=== PATIENT | male | born 1955 | race Caucasian/White ===

== ENCOUNTER 2016-09-10 19:01 | Inpatient (IN) | payer MEDICARE, BC, OTHER ==
[~2016-09-10] VITALS: Ht 182.9 cm; Wt 92.3 kg
[2016-09-10] VITALS (60 sets, daily range): BP systolic 124; BP diastolic 81; PULSE 100; TEMP 98.1; O2SAT 77–98
[~2016-09-10 19:01] MED LIST: ALBUTEROL SULFAT3 M3 IH; ASPIRIN 32325 MG/TAB PO; ATIVAN 0.50.5 MG/TAB PO; BACTRIM DS 8001 TAB PO; BUPROPION HCL75 MG PO; CATAPRES 0.1MG0.1 MG PO; CELEXA40 MG PO; COLACE 100100 MG/CAP PO; DESYREL 100MG100 MG PO; DULCOLAX10 MG RC; ENULOSE10 GM/151 PO; FEROSUL325 MG PO; FERRATE325 MG PO; FLOMAX 0.40.4 MG/CAP PO; GEODON 20 MG20 MG PO; INFED50 MG/ML IM; K-DUR 2020 MEQ PO; LEVAQUIN 5500 MG/TAB PO; LEXAPRO 10MG10 MG PO; LIORESAL I2000 MCG/1 IT; LOPID 600M600 MG/TAB PO; LORTAB 5/500 501 TAB PO; MIRALAX 17GM PK1 PKT PO; MIRALAX PA17 GM/Dose PO; MVI; NORCO 325 MG-7.1 TAB PO; NYAMYC100000 U/G TP; PREVACID 30MG30 M1 PO; PRINVIL PO; PROBIOTIC FORMU1 CAP PO; RISPERDAL 0.20.25 MG PO; SEE INSTRUCTIONS IT; SENOKOT8.6 MG PO; SLOW-MAG 6464 MG/TAB PO; THERAGRAN1 TA1 PO; TRAZODO50 MG PO; TYLENOL 325MG325 MG PO; TYLENOL SU650 MG/SUP RC; VANCOCIN HCL1 GM IV; VITAMIN C500 MG PO; ZOCOR 20MG20 MG PO
[2016-09-10 19:48] LABS: BASO # 0.1 (0.0-0.2); BASO % 0.4 % (0.0-2.0); EOS # 0.2 (0.0-0.7); EOS % 0.9 % (0-4.0); GRAN # 17.3 (1.4-6.5); GRAN % 79.1 % (42.2-75.2); HEMOGLOBIN 15.6 g/dl (13.5-18.0); LYMPH # 3.6 (1.2-3.4); LYMPH % 16.5 % (20.0-51.0); MEAN CELL VOLUME 85 fl (80.0-100.0); MEAN CORPUSCULAR HEMOGLOBIN 29 pg (27.0-31.0); MEAN CORPUSCULAR HGB CONC 34 g/dl (33.0-37.0); MEAN PLATELET VOLUME 9.8 fl (7.4-10.4); MONO # 0.4 (0.1-0.6); PLATELET COUNT 318 K/mm3 (130-400); RED BLOOD COUNT 5.44 M/mm3 (4.20-5.60); REDCELL DISTRIBUTION WIDTH-CV 12.5 % (11.5-14.5)
[2016-09-10] MEDS ORDERED: PRIL40 PO (19:49)
[2016-09-10 19:51] LABS: ADJUSTED CALCIUM 8.6 mg/dL (8.4-10.2); ALBUMIN 3.6 gm/dL (3.5-5.0); BILIRUBIN,TOTAL 0.7 mg/dL (0.0-1.0); CALCIUM 8.3 mg/dL (8.4-10.2); CREATININE, serum 0.77 mg/dL (0.66-1.25); POTASSIUM 3.1 mmol/L (3.4-5.0); TOTAL PROTEIN 6.8 gm/dL (6.4-8.2)
[2016-09-10 19:54] LABS: WHITE BLOOD COUNT 21.9 K/mm3 (4.8-10.8)
[2016-09-10 20:03] LABS: TROPONIN-I 0.024 ng/mL (0.000-0.034)
[2016-09-10] MEDS ORDERED: GAS RELIEF125 MG PO (21:47)
[2016-09-10] MEDS ORDERED: DESYREL 50MG50 MG PO (23:14)
[2016-09-10] MEDS ORDERED: GEODON 20 MG20 MG PO (23:16)
[2016-09-10] MEDS ORDERED: CALMOSEPTINE1 OIN TP (23:19)
[2016-09-10] MEDS ORDERED: DULCOLAX S10 MG/SUPP RC (23:25)
[2016-09-10 23:27] LABS: ARTERIAL BLD GAS O2 SATURATION 93.5 % (92-100); ARTERIAL BLD GAS TCO2 CT 29.3; ARTERIAL BLOOD GAS HCO3 27.8 meq/L (22-26); ARTERIAL BLOOD GAS PHT 7.39 C (7.35-7.45); ARTERIAL BLOOD GAS PO2 71.7 mmHg (80-100); ARTERIAL BLOOD GAS PO2T 71.7 (80-100); ARTERIAL BLOOD GAS pH 7.39 (7.35-7.45); OXYHEMOGLOBIN 92.6 %
[2016-09-10 23:28] LABS: ALLEN TEST NO; ATS? YES
[2016-09-10] MEDS ORDERED: ALBUTEROL SULFAT3 M3 IH (23:29)
[2016-09-10] MEDS ORDERED: LIORESAL 1010 MG/TAB PO (23:31)
[2016-09-10] MEDS ORDERED: BENADRYL25 M2 PO (23:34)
[2016-09-10] MEDS ORDERED: ROBITUSSIN DM 105 ML PO (23:35)
[2016-09-10] MEDS ORDERED: AMOXICILLIN 50500 MG PO (23:37)
[2016-09-10] MEDS ORDERED: OCUVITE1 TA1 PO (23:51)
[2016-09-10] MEDS ORDERED: OPTIVE 0.5%-0.915 ML OP (23:53)
[2016-09-10] MEDS ORDERED: MULTIPLE VITAMI1 CAP PO (23:56)
[2016-09-11] VITALS (852 sets, daily range): BP systolic 115–148; BP diastolic 71–79; PULSE 78–103; TEMP 97.5–98.4; O2SAT 70–100
[2016-09-11 02:44] LABS: MAGNESIUM 1.7 mg/dL (1.6-2.3)
[2016-09-11 05:04] LABS: ARTERIAL BLD GAS O2 SATURATION 97.5 % (92-100); ARTERIAL BLD GAS TCO2 CT 30.9; ARTERIAL BLOOD GAS BASE EXCESS 3.4 (-2-2); ARTERIAL BLOOD GAS HCO3 29.4 meq/L (22-26); ARTERIAL BLOOD GAS PHT 7.39 C (7.35-7.45); ARTERIAL BLOOD GAS PO2 105.4 mmHg (80-100); ARTERIAL BLOOD GAS PO2T 105.4 (80-100); ARTERIAL BLOOD GAS pH 7.39 (7.35-7.45); OXYHEMOGLOBIN 96.4 %
[2016-09-11 05:05] LABS: ALLEN TEST NO; ATS? YES
[2016-09-11 13:21] LABS: CALCIUM 8.4 mg/dL (8.4-10.2); CREATININE, serum 0.69 mg/dL (0.66-1.25); MAGNESIUM 1.9 mg/dL (1.6-2.3)
[2016-09-11 13:22] LABS: BASO % 0.2 % (0.0-2.0); EOS # 0.1 (0.0-0.7); EOS % 0.9 % (0-4.0); GRAN # 7.6 (1.4-6.5); GRAN % 72.5 % (42.2-75.2); HEMATOCRIT 42.1 % (42.0-52.0); HEMOGLOBIN 13.8 g/dl (13.5-18.0); LYMPH # 2.2 (1.2-3.4); MEAN CELL VOLUME 87 fl (80.0-100.0); MEAN CORPUSCULAR HEMOGLOBIN 29 pg (27.0-31.0); MEAN CORPUSCULAR HGB CONC 33 g/dl (33.0-37.0); MEAN PLATELET VOLUME 9.5 fl (7.4-10.4); MONO # 0.5 (0.1-0.6); PLATELET COUNT 229 K/mm3 (130-400); RED BLOOD COUNT 4.84 M/mm3 (4.20-5.60); REDCELL DISTRIBUTION WIDTH-CV 12.7 % (11.5-14.5); WHITE BLOOD COUNT 10.4 K/mm3 (4.8-10.8)
[2016-09-12 00:20] VITALS: BP 133/57; PULSE 71; TEMP 98.3
[2016-09-12 03:21] VITALS: BP 142/69; PULSE 76; TEMP 97.4
[2016-09-12 08:11] LABS: BASO % 0.4 % (0.0-2.0); EOS # 0.1 (0.0-0.7); EOS % 1.9 % (0-4.0); GRAN # 4.2 (1.4-6.5); GRAN % 61.9 % (42.2-75.2); HEMATOCRIT 37.8 % (42.0-52.0); HEMOGLOBIN 12.1 g/dl (13.5-18.0); LYMPH % 29.4 % (20.0-51.0); MEAN CELL VOLUME 88 fl (80.0-100.0); MEAN CORPUSCULAR HEMOGLOBIN 28 pg (27.0-31.0); MEAN CORPUSCULAR HGB CONC 32 g/dl (33.0-37.0); MONO # 0.4 (0.1-0.6); PLATELET COUNT 219 K/mm3 (130-400); RED BLOOD COUNT 4.31 M/mm3 (4.20-5.60); REDCELL DISTRIBUTION WIDTH-CV 12.8 % (11.5-14.5); WHITE BLOOD COUNT 6.8 K/mm3 (4.8-10.8)
[2016-09-12 08:13] LABS: CALCIUM 8.1 mg/dL (8.4-10.2); CREATININE, serum 0.67 mg/dL (0.66-1.25); MAGNESIUM 1.8 mg/dL (1.6-2.3); PHOSPHOROUS 3.2 mg/dL (2.5-4.5); POTASSIUM 3.8 mmol/L (3.4-5.0)
[2016-09-12 09:17] VITALS: BP 138/71; PULSE 82; TEMP 98.2
[2016-09-12] MEDS ORDERED: CLEOCIN HCL300 MG PO (11:40)
[2016-09-12 16:04] VITALS: BP 138/71; PULSE 82; TEMP 98.2
== END 2016-09-12 16:22 | DRG 154 ==
LOC: COL.ER 19:01 → ICU 21:32 → MEDICAL 09-11 16:34
PROVIDERS: Family Medicine; Internal Medicine; Nurse Practitioner Family
DX: T17.220A Food in pharynx causing asphyxiation, initial encounter (principal); J96.01 Acute respiratory failure with hypoxia; J69.0 Pneumonitis due to inhalation of food and vomit; E87.1 Hypo-osmolality and hyponatremia; I10 Essential (primary) hypertension; E11.9 Type 2 diabetes mellitus without complications; E87.6 Hypokalemia; R13.10 Dysphagia, unspecified; R47.1 Dysarthria and anarthria; G89.29 Other chronic pain; Z87.820 Personal history of traumatic brain injury; Z93.3 Colostomy status; X58.XXXA Exposure to other specified factors, initial encounter
CPT/HCPCS: 99223-AI; 99239; J0456; J1650; J1956; J2185; J3480; J7030; J7050

== ENCOUNTER 2018-03-05 16:18 | Inpatient (IN) | payer MEDICARE, BC, OTHER ==
[~2018-03-05] VITALS: Ht 182.9 cm; Wt 96.9 kg
[~2018-03-05 16:18] MED LIST changes: +AMOXICILLIN 50500 MG PO; +BENADRYL25 M2 PO; +CALMOSEPTINE1 OIN TP; +CLEOCIN HCL300 MG PO; +DESYREL 50MG50 MG PO; +DULCOLAX S10 MG/SUPP RC; +GAS RELIEF125 MG PO; +LIORESAL 1010 MG/TAB PO; +MULTIPLE VITAMI1 CAP PO; +OCUVITE1 TA1 PO; +OPTIVE 0.5%-0.915 ML OP; +PRIL40 PO; +ROBITUSSIN DM 105 ML PO
[2018-03-05 17:00] LABS: BASO # 0.1 (0.0-0.2); BASO % 0.2 % (0.0-2.0); GRAN # 17.9 (1.4-6.5); GRAN % 82.4 % (42.2-75.2); HEMATOCRIT 51.5 % (42.0-52.0); HEMOGLOBIN 16.5 g/dl (13.5-18.0); LYMPH # 2.6 (1.2-3.4); LYMPH % 11.9 % (20.0-51.0); MEAN CELL VOLUME 87 fl (80.0-100.0); MEAN CORPUSCULAR HEMOGLOBIN 28 pg (27.0-31.0); MEAN CORPUSCULAR HGB CONC 32 g/dl (33.0-37.0); MONO # 1.1 (0.1-0.6); PLATELET COUNT 389 K/mm3 (130-400); REDCELL DISTRIBUTION WIDTH-CV 13.7 % (11.5-14.5)
[2018-03-05 17:32] LABS: ALANINE AMINOTRANSFERASE 34 U/L (21-72); ALBUMIN 3.8 gm/dL (3.5-5.0); ALKALINE PHOSPHATASE 107 U/L (50-136); ANION GAP 8 mmol/L (7-16); AST,SGOT 35 U/L (15-37); BILIRUBIN,TOTAL 0.6 mg/dL (0.0-1.0); BLOOD UREA NITROGEN 17 mg/dL (9-20); C-REACTIVE PROTEIN 5.1 mg/dL (0.0-0.9); CALCIUM 8.5 mg/dL (8.4-10.2); CARBON DIOXIDE 31 mmol/L (22-30); CHLORIDE 97 mmol/L (98-107); CREATININE, serum 0.73 mg/dL (0.66-1.25); GLUCOSE 173 mg/dL (74-106); LIPASE < 10 U/L (23-300); POTASSIUM 4.1 mmol/L (3.4-5.0); SODIUM 136 mmol/L (137-145); TOTAL PROTEIN 7.4 gm/dL (6.4-8.2)
[2018-03-05 19:17] LABS: COLLECTION METHOD CLEAN CATCH
[2018-03-05 19:47] LABS: MUCOUS Present /lpf; PH 5 (5-8); SQUAMOUS EPITHELIAL None Seen /hpf; URINE APPEARANCE Clear; URINE BACTERIA None Seen /hpf; URINE BILIRUBIN Negative (NEGATIVE); URINE BLOOD Negative (NEGATIVE); URINE COLOR Amber; URINE GLUCOSE Negative (NEGATIVE); URINE KETONE Trace (NEGATIVE); URINE LEUKOCYTE ESTERASE Negative (NEGATIVE); URINE NITRATE Negative (NEGATIVE); URINE PROTEIN(semi-quant) 2+ (NEGATIVE)
[2018-03-05 21:22] VITALS: BP 151/85; PULSE 106; TEMP 97.3
[2018-03-05] MEDS ORDERED: LEXAPRO 5MG5 MG PO (21:26)
[2018-03-05] MEDS ORDERED: MULTI VITAMINS1 TAB PO (21:31)
[2018-03-05] MEDS ORDERED: OCUVITE1 TA1 PO (21:32)
[2018-03-05] MEDS ORDERED: COLACE 100100 MG/CAP PO (21:36)
[2018-03-05] MEDS ORDERED: REFRESH OPTIVE0.4 M1 OP (21:46)
[2018-03-05] MEDS ORDERED: ALEVE 220MG220 MG PO (21:48)
[2018-03-05] MEDS ORDERED: LINZESS145CAP PO (21:56)
[2018-03-05] MEDS ORDERED: ATROVENT I0.2 MG/1 M IH (22:00)
[2018-03-06] VITALS (7 sets, daily range): BP systolic 108–158; BP diastolic 70–84; PULSE 75–124; TEMP 97.5–99.6
[2018-03-06 07:44] LABS: ALBUMIN 3.4 gm/dL (3.5-5.0); BILIRUBIN,TOTAL 0.5 mg/dL (0.0-1.0); CALCIUM 8.1 mg/dL (8.4-10.2); CREATININE, serum 0.77 mg/dL (0.66-1.25); POTASSIUM 3.9 mmol/L (3.4-5.0); TOTAL PROTEIN 6.6 gm/dL (6.4-8.2)
[2018-03-06 07:46] LABS: BASO % 0.2 % (0.0-2.0); EOS % 0.1 % (0-4.0); GRAN # 14.6 (1.4-6.5); GRAN % 86.5 % (42.2-75.2); HEMATOCRIT 45.8 % (42.0-52.0); HEMOGLOBIN 14.6 g/dl (13.5-18.0); LYMPH # 1.3 (1.2-3.4); LYMPH % 7.8 % (20.0-51.0); MEAN CELL VOLUME 88 fl (80.0-100.0); MEAN CORPUSCULAR HEMOGLOBIN 28 pg (27.0-31.0); MEAN CORPUSCULAR HGB CONC 32 g/dl (33.0-37.0); MEAN PLATELET VOLUME 9.7 fl (7.4-10.4); MONO # 0.9 (0.1-0.6); MONO % 5.1 % (1.7-9.3); PLATELET COUNT 304 K/mm3 (130-400); RED BLOOD COUNT 5.22 M/mm3 (4.20-5.60); REDCELL DISTRIBUTION WIDTH-CV 13.8 % (11.5-14.5)
[2018-03-07 03:51] VITALS: BP 163/78; PULSE 115; TEMP 98.9
[2018-03-07 07:11] LABS: BASO % 0.3 % (0.0-2.0); EOS % 0.3 % (0-4.0); GRAN # 6.8 (1.4-6.5); GRAN % 76.5 % (42.2-75.2); HEMATOCRIT 40.1 % (42.0-52.0); LYMPH # 1.4 (1.2-3.4); MEAN CELL VOLUME 91 fl (80.0-100.0); MEAN CORPUSCULAR HEMOGLOBIN 28 pg (27.0-31.0); MEAN CORPUSCULAR HGB CONC 31 g/dl (33.0-37.0); MEAN PLATELET VOLUME 9.7 fl (7.4-10.4); MONO # 0.6 (0.1-0.6); MONO % 6.6 % (1.7-9.3); PLATELET COUNT 232 K/mm3 (130-400); RED BLOOD COUNT 4.43 M/mm3 (4.20-5.60); REDCELL DISTRIBUTION WIDTH-CV 14.1 % (11.5-14.5)
[2018-03-07 07:16] LABS: HEMOGLOBIN 12.5 g/dl (13.5-18.0)
[2018-03-07 07:21] VITALS: BP 161/75; PULSE 108; TEMP 98.3
[2018-03-07 07:25] LABS: CALCIUM 7.8 mg/dL (8.4-10.2); CREATININE, serum 0.67 mg/dL (0.66-1.25); POTASSIUM 3.6 mmol/L (3.4-5.0)
[2018-03-07 12:29] VITALS: BP 165/73; PULSE 101; TEMP 98
[2018-03-07 15:52] VITALS: BP 152/81; PULSE 104; TEMP 97.3
[2018-03-07 20:00] VITALS: BP 142/67; PULSE 96; TEMP 98.3
[2018-03-08 00:57] VITALS: BP 146/68; PULSE 94; TEMP 98.4
[2018-03-08 04:19] VITALS: BP 147/69; PULSE 82; TEMP 98.4
[2018-03-08 06:14] LABS: BASO % 0.3 % (0.0-2.0); EOS # 0.1 (0.0-0.7); EOS % 1.5 % (0-4.0); GRAN # 7.1 (1.4-6.5); HEMOGLOBIN 11.5 g/dl (13.5-18.0); LYMPH # 1.2 (1.2-3.4); LYMPH % 13.1 % (20.0-51.0); MEAN CELL VOLUME 88 fl (80.0-100.0); MEAN CORPUSCULAR HEMOGLOBIN 28 pg (27.0-31.0); MEAN CORPUSCULAR HGB CONC 32 g/dl (33.0-37.0); MEAN PLATELET VOLUME 10.1 fl (7.4-10.4); MONO # 0.6 (0.1-0.6); MONO % 6.8 % (1.7-9.3); PLATELET COUNT 203 K/mm3 (130-400); RED BLOOD COUNT 4.07 M/mm3 (4.20-5.60); REDCELL DISTRIBUTION WIDTH-CV 13.5 % (11.5-14.5)
[2018-03-08 06:23] LABS: CALCIUM 7.8 mg/dL (8.4-10.2); CREATININE, serum 0.55 mg/dL (0.66-1.25); HEMATOCRIT 35.9 % (42.0-52.0); POTASSIUM 3.4 mmol/L (3.4-5.0)
[2018-03-08 08:28] VITALS: BP 139/65; PULSE 87; TEMP 97.8
[2018-03-08 12:50] VITALS: BP 155/68; PULSE 63; TEMP 97.5
[2018-03-08 16:40] VITALS: BP 154/63; PULSE 60; TEMP 98.5
[2018-03-08 19:51] VITALS: BP 181/71; PULSE 82; TEMP 98.6
[2018-03-09 01:29] VITALS: BP 165/78; PULSE 84; TEMP 98.7
[2018-03-09 04:51] VITALS: BP 147/87; PULSE 64; TEMP 98.3
[2018-03-09 06:03] LABS: BASO % 0.3 % (0.0-2.0); EOS # 0.2 (0.0-0.7); EOS % 1.9 % (0-4.0); GRAN # 6.9 (1.4-6.5); HEMOGLOBIN 12.5 g/dl (13.5-18.0); LYMPH # 1.2 (1.2-3.4); LYMPH % 13.8 % (20.0-51.0); MEAN CELL VOLUME 86 fl (80.0-100.0); MEAN CORPUSCULAR HEMOGLOBIN 28 pg (27.0-31.0); MEAN CORPUSCULAR HGB CONC 33 g/dl (33.0-37.0); MONO # 0.5 (0.1-0.6); MONO % 5.4 % (1.7-9.3); PLATELET COUNT 217 K/mm3 (130-400); RED BLOOD COUNT 4.44 M/mm3 (4.20-5.60); REDCELL DISTRIBUTION WIDTH-CV 13.2 % (11.5-14.5)
[2018-03-09 06:18] LABS: CREATININE, serum 0.45 mg/dL (0.66-1.25); POTASSIUM 3.3 mmol/L (3.4-5.0)
[2018-03-09 07:30] VITALS: BP 150/63; PULSE 43; TEMP 97.6
[2018-03-09 15:07] VITALS: BP 155/70; PULSE 98; TEMP 97.5
[2018-03-09 20:34] VITALS: BP 167/92; PULSE 90; TEMP 98.7
[2018-03-09 23:47] VITALS: BP 146/78; PULSE 92; TEMP 98.2
[2018-03-10 04:27] VITALS: BP 152/80; PULSE 85; TEMP 98.5
[2018-03-10 06:43] LABS: BASO % 0.4 % (0.0-2.0); EOS # 0.2 (0.0-0.7); EOS % 2.1 % (0-4.0); GRAN # 7.3 (1.4-6.5); GRAN % 77.7 % (42.2-75.2); HEMOGLOBIN 12.6 g/dl (13.5-18.0); LYMPH # 1.2 (1.2-3.4); LYMPH % 12.6 % (20.0-51.0); MEAN CELL VOLUME 85 fl (80.0-100.0); MEAN CORPUSCULAR HEMOGLOBIN 28 pg (27.0-31.0); MEAN CORPUSCULAR HGB CONC 33 g/dl (33.0-37.0); MONO # 0.6 (0.1-0.6); MONO % 6.3 % (1.7-9.3); PLATELET COUNT 259 K/mm3 (130-400); RED BLOOD COUNT 4.48 M/mm3 (4.20-5.60); REDCELL DISTRIBUTION WIDTH-CV 13.2 % (11.5-14.5)
[2018-03-10 06:52] LABS: CALCIUM 8.1 mg/dL (8.4-10.2); CREATININE, serum 0.45 mg/dL (0.66-1.25); POTASSIUM 3.3 mmol/L (3.4-5.0)
[2018-03-10 07:15] VITALS: BP 166/84; PULSE 86; TEMP 98.1
[2018-03-10 11:05] VITALS: BP 159/79; PULSE 92; TEMP 97.7
[2018-03-10 16:34] VITALS: BP 138/78; PULSE 96; TEMP 97.9
[2018-03-10 21:23] VITALS: BP 157/83; PULSE 88; TEMP 97.5
[2018-03-11] VITALS (8 sets, daily range): BP systolic 124–167; BP diastolic 48–84; PULSE 82–114; TEMP 97.2–99.4
[2018-03-11 06:40] LABS: BASO # 0.1 (0.0-0.2); BASO % 0.5 % (0.0-2.0); EOS # 0.2 (0.0-0.7); EOS % 1.9 % (0-4.0); GRAN % 75.5 % (42.2-75.2); HEMOGLOBIN 12.7 g/dl (13.5-18.0); LYMPH # 1.6 (1.2-3.4); LYMPH % 14.6 % (20.0-51.0); MEAN CELL VOLUME 84 fl (80.0-100.0); MEAN CORPUSCULAR HEMOGLOBIN 28 pg (27.0-31.0); MEAN CORPUSCULAR HGB CONC 33 g/dl (33.0-37.0); MEAN PLATELET VOLUME 10.1 fl (7.4-10.4); MONO # 0.7 (0.1-0.6); MONO % 6.7 % (1.7-9.3); PLATELET COUNT 277 K/mm3 (130-400); RED BLOOD COUNT 4.51 M/mm3 (4.20-5.60); REDCELL DISTRIBUTION WIDTH-CV 13.5 % (11.5-14.5)
[2018-03-11 07:05] LABS: CREATININE, serum 0.52 mg/dL (0.66-1.25); POTASSIUM 3.4 mmol/L (3.4-5.0)
[2018-03-11] MEDS ORDERED: NYSTATIN POWDER15 GM TOP (14:19)
[2018-03-11] MEDS ORDERED: GAS AID MAXIMU125 MG PO (14:20)
[2018-03-11] MEDS ORDERED: OCUVITE1 TA1 PO (14:26)
[2018-03-11] MEDS ORDERED: PREVIDENTGEL1.1 DT (14:27)
[2018-03-11] MEDS ORDERED: SF 5000 PLUS1.1% DT (14:28)
[2018-03-12 03:19] VITALS: BP 137/72; PULSE 97; TEMP 99
[2018-03-12 06:39] LABS: BASO % 0.4 % (0.0-2.0); EOS # 0.2 (0.0-0.7); GRAN # 6.7 (1.4-6.5); GRAN % 72.3 % (42.2-75.2); HEMATOCRIT 39.9 % (42.0-52.0); LYMPH # 1.6 (1.2-3.4); LYMPH % 17.1 % (20.0-51.0); MEAN CELL VOLUME 86 fl (80.0-100.0); MEAN CORPUSCULAR HEMOGLOBIN 28 pg (27.0-31.0); MEAN CORPUSCULAR HGB CONC 33 g/dl (33.0-37.0); MEAN PLATELET VOLUME 10.2 fl (7.4-10.4); MONO # 0.6 (0.1-0.6); MONO % 6.8 % (1.7-9.3); PLATELET COUNT 269 K/mm3 (130-400); RED BLOOD COUNT 4.64 M/mm3 (4.20-5.60); REDCELL DISTRIBUTION WIDTH-CV 13.9 % (11.5-14.5)
[2018-03-12 06:50] LABS: CALCIUM 8.4 mg/dL (8.4-10.2); CREATININE, serum 0.58 mg/dL (0.66-1.25); POTASSIUM 3.8 mmol/L (3.4-5.0)
[2018-03-12 08:00] VITALS: BP 123/66; PULSE 102
[2018-03-12] MEDS ORDERED: DIFLUCAN 100MG100 MG PO (12:13)
[2018-03-12 12:49] VITALS: BP 123/66; PULSE 102; TEMP 99
== END 2018-03-12 13:23 | DRG 388 ==
LOC: COL.ER 16:18 → SURG 19:10
PROVIDERS: Emergency Medicine; Hospitalist; Nurse Practitioner Family; Physician Assistant; Surgery
PROC: 0D9670Z Drainage of Stomach with Drainage Device, Via Natural or Artificial Opening (ICD-10-PCS; principal; 2018-03-05)
DX: K56.600 Partial intestinal obstruction, unspecified as to cause (principal); J69.0 Pneumonitis due to inhalation of food and vomit; E87.1 Hypo-osmolality and hyponatremia; Z23 Encounter for immunization; I10 Essential (primary) hypertension; Z87.820 Personal history of traumatic brain injury; E11.9 Type 2 diabetes mellitus without complications; Z93.3 Colostomy status; R13.19 Other dysphagia; G89.21 Chronic pain due to trauma; E87.6 Hypokalemia; R47.1 Dysarthria and anarthria; L89.159 Pressure ulcer of sacral region, unspecified stage
CPT/HCPCS: 99222-AI; 99231-AI; 99232-AI; 99233-AI; 99239; A4216; A9284; C9113; J0696; J1644; J1885; J2270; J2405; J3480; J7030; Q9967

== ENCOUNTER 2018-05-10 07:31 | Inpatient (IN) | payer MEDICARE, BC ==
[2018-05-10] VITALS (689 sets, daily range): BP systolic 125–150; BP diastolic 73–92; PULSE 120–140; TEMP 97.6–98.4; O2SAT 77–99
[~2018-05-10] VITALS: Ht 182.9 cm; Wt 91.8 kg
[~2018-05-10 07:31] MED LIST changes: +ALEVE 220MG220 MG PO; +ATROVENT I0.2 MG/1 M IH; +DIFLUCAN 100MG100 MG PO; +GAS AID MAXIMU125 MG PO; +LEXAPRO 5MG5 MG PO; +LINZESS145CAP PO; +MULTI VITAMINS1 TAB PO; +NYSTATIN POWDER15 GM TOP; +PREVIDENTGEL1.1 DT; +REFRESH OPTIVE0.4 M1 OP; +SF 5000 PLUS1.1% DT
[2018-05-10 08:08] LABS: HEMOGLOBIN 17.8 g/dl (13.5-18.0); MEAN CELL VOLUME 85 fl (80.0-100.0); MEAN CORPUSCULAR HEMOGLOBIN 28 pg (27.0-31.0); MEAN CORPUSCULAR HGB CONC 33 g/dl (33.0-37.0); MEAN PLATELET VOLUME 9.9 fl (7.4-10.4); PLATELET COUNT 442 K/mm3 (130-400); RED BLOOD COUNT 6.36 M/mm3 (4.20-5.60); REDCELL DISTRIBUTION WIDTH-CV 13.4 % (11.5-14.5)
[2018-05-10 08:10] LABS: HEMATOCRIT 53.9 % (42.0-52.0)
[2018-05-10 08:19] LABS: ARTERIAL BLD GAS TCO2 CT 19.6; ARTERIAL BLOOD GAS BASE EXCESS -7.3 (-2-2); ARTERIAL BLOOD GAS HCO3 18.4 meq/L (22-26); ARTERIAL BLOOD GAS PCO2 38.2 mmHg (35-45); ARTERIAL BLOOD GAS PO2 89.8 mmHg (80-100)
[2018-05-10] MEDS ORDERED: CALMOSEPTINE OI71 GM TOP (08:20)
[2018-05-10 08:22] LABS: ALANINE AMINOTRANSFERASE 31 U/L (21-72); ALBUMIN 4.2 gm/dL (3.5-5.0); ALKALINE PHOSPHATASE 157 U/L (50-136); AST,SGOT 28 U/L (15-37); BILIRUBIN,TOTAL 0.5 mg/dL (0.0-1.0); BLOOD UREA NITROGEN 12 mg/dL (9-20); CALCIUM 9.9 mg/dL (8.4-10.2); CARBON DIOXIDE 20 mmol/L (22-30); GLUCOSE 397 mg/dL (74-106); LIPASE 16 U/L (23-300); MAGNESIUM 1.7 mg/dL (1.6-2.3); POTASSIUM 3.8 mmol/L (3.4-5.0); SODIUM 141 mmol/L (137-145); TOTAL PROTEIN 7.9 gm/dL (6.4-8.2)
[2018-05-10 08:24] LABS: CHLORIDE 103 mmol/L (98-107)
[2018-05-10 08:31] LABS: COLLECTION METHOD CLEAN CATCH
[2018-05-10 08:33] LABS: ANION GAP 18 mmol/L (7-16); CREATINE KINASE < 20 U/L (55-170)
[2018-05-10 08:34] LABS: TROPONIN-I 0.015 ng/mL (0.000-0.034)
[2018-05-10] MEDS ORDERED: ALEVE 220MG220 MG PO (08:36)
[2018-05-10 08:38] LABS: BAND 23 % (0-10); LYMPHOCYTE 9 % (20.0-51.0); NEUTROPHILS 68 % (42.0-75.2)
[2018-05-10 08:39] LABS: PLATELET ESTIMATE INCREASED (NORMAL)
[2018-05-10 08:59] LABS: MUCOUS Present /lpf; PH 5 (5-8); SQUAMOUS EPITHELIAL 0-2 /hpf; URINE APPEARANCE Hazy; URINE BACTERIA Moderate /hpf; URINE BILIRUBIN Negative (NEGATIVE); URINE BLOOD Negative (NEGATIVE); URINE COLOR Yellow; URINE GLUCOSE 3+ (NEGATIVE); URINE KETONE 1+ (NEGATIVE); URINE LEUKOCYTE ESTERASE Negative (NEGATIVE); URINE NITRATE Negative (NEGATIVE); URINE PROTEIN(semi-quant) 2+ (NEGATIVE); URINE RBC 0-2 /hpf; URINE UROBILINOGEN Negative (NEGATIVE)
[2018-05-10] MEDS ORDERED: BACITRACIN Z500 U/GM TOP (09:00)
[2018-05-10] MEDS ORDERED: [UNRECOGNIZED DRUG - MIXTURE] PO (09:02)
[2018-05-10] MEDS ORDERED: IPRATROPIUM BROM3 M1 INH (09:41)
[2018-05-10] MEDS ORDERED: DESYREL 50MG50 MG PO (10:44)
[2018-05-10 14:43] LABS: BASO % 0.2 % (0.0-2.0); GRAN # 16.2 (1.4-6.5); GRAN % 88.4 % (42.2-75.2); HEMATOCRIT 47.2 % (42.0-52.0); HEMOGLOBIN 15.2 g/dl (13.5-18.0); LYMPH # 1.1 (1.2-3.4); LYMPH % 6.1 % (20.0-51.0); MEAN CELL VOLUME 87 fl (80.0-100.0); MEAN CORPUSCULAR HEMOGLOBIN 28 pg (27.0-31.0); MEAN CORPUSCULAR HGB CONC 32 g/dl (33.0-37.0); MEAN PLATELET VOLUME 9.5 fl (7.4-10.4); MONO # 0.9 (0.1-0.6); PLATELET COUNT 307 K/mm3 (130-400); RED BLOOD COUNT 5.45 M/mm3 (4.20-5.60); REDCELL DISTRIBUTION WIDTH-CV 13.7 % (11.5-14.5)
[2018-05-10 14:57] LABS: CALCIUM 8.7 mg/dL (8.4-10.2); CREATININE, serum 0.66 mg/dL (0.66-1.25); POTASSIUM 4.6 mmol/L (3.4-5.0)
[2018-05-10 16:13] LABS: ARTERIAL BLD GAS O2 SATURATION 97.1 % (92-100); ARTERIAL BLD GAS TCO2 CT 26.2; ARTERIAL BLOOD GAS BASE EXCESS -1.4 (-2-2); ARTERIAL BLOOD GAS HCO3 24.7 meq/L (22-26); ARTERIAL BLOOD GAS PCO2 46.7 mmHg (35-45); ARTERIAL BLOOD GAS PO2 97.3 mmHg (80-100); ARTERIAL BLOOD GAS pH 7.34 (7.35-7.45)
[2018-05-11] VITALS (585 sets, daily range): BP systolic 158–189; BP diastolic 77–102; PULSE 92–105; TEMP 97–98.7; O2SAT 46–100
[2018-05-11 05:45] LABS: BASO % 0.3 % (0.0-2.0); EOS % 0.4 % (0-4.0); GRAN # 7.9 (1.4-6.5); GRAN % 77.7 % (42.2-75.2); HEMATOCRIT 42.4 % (42.0-52.0); HEMOGLOBIN 13.7 g/dl (13.5-18.0); LYMPH # 1.5 (1.2-3.4); LYMPH % 14.5 % (20.0-51.0); MEAN CELL VOLUME 87 fl (80.0-100.0); MEAN CORPUSCULAR HEMOGLOBIN 28 pg (27.0-31.0); MEAN CORPUSCULAR HGB CONC 32 g/dl (33.0-37.0); MEAN PLATELET VOLUME 9.7 fl (7.4-10.4); MONO # 0.7 (0.1-0.6); MONO % 6.8 % (1.7-9.3); PLATELET COUNT 293 K/mm3 (130-400); RED BLOOD COUNT 4.85 M/mm3 (4.20-5.60)
[2018-05-11 05:51] LABS: ARTERIAL BLD GAS O2 SATURATION 97.7 % (92-100); ARTERIAL BLD GAS TCO2 CT 35.4; ARTERIAL BLOOD GAS BASE EXCESS 5.8 (-2-2); ARTERIAL BLOOD GAS HCO3 33.5 meq/L (22-26); ARTERIAL BLOOD GAS PO2 109.8 mmHg (80-100); ARTERIAL BLOOD GAS pH 7.35 (7.35-7.45)
[2018-05-11 05:59] LABS: CALCIUM 8.5 mg/dL (8.4-10.2); CREATININE, serum 0.65 mg/dL (0.66-1.25); POTASSIUM 4.1 mmol/L (3.4-5.0)
[2018-05-12] VITALS (689 sets, daily range): BP systolic 138–160; BP diastolic 70–92; PULSE 85–128; TEMP 97.6–99.7; O2SAT 55–100
[2018-05-12 05:49] LABS: BASO % 0.3 % (0.0-2.0); EOS # 0.1 (0.0-0.7); EOS % 0.5 % (0-4.0); GRAN # 7.8 (1.4-6.5); GRAN % 73.3 % (42.2-75.2); HEMATOCRIT 41.4 % (42.0-52.0); HEMOGLOBIN 13.1 g/dl (13.5-18.0); LYMPH % 18.8 % (20.0-51.0); MEAN CELL VOLUME 88 fl (80.0-100.0); MEAN CORPUSCULAR HEMOGLOBIN 28 pg (27.0-31.0); MEAN CORPUSCULAR HGB CONC 32 g/dl (33.0-37.0); MEAN PLATELET VOLUME 9.5 fl (7.4-10.4); MONO # 0.7 (0.1-0.6); MONO % 6.8 % (1.7-9.3); PLATELET COUNT 274 K/mm3 (130-400); RED BLOOD COUNT 4.73 M/mm3 (4.20-5.60); REDCELL DISTRIBUTION WIDTH-CV 13.9 % (11.5-14.5)
[2018-05-12 06:04] LABS: CALCIUM 8.4 mg/dL (8.4-10.2); CREATININE, serum 0.6 mg/dL (0.66-1.25); POTASSIUM 3.6 mmol/L (3.4-5.0)
[2018-05-12 23:44] LABS: CALCIUM 8.2 mg/dL (8.4-10.2); CREATININE, serum 0.84 mg/dL (0.66-1.25); MAGNESIUM 1.2 mg/dL (1.6-2.3); POTASSIUM 3.4 mmol/L (3.4-5.0)
[2018-05-13] VITALS (1095 sets, daily range): BP systolic 136–168; BP diastolic 77–96; PULSE 97–134; TEMP 97.8–99.9; O2SAT 33–100
[2018-05-13 05:47] LABS: HEMOGLOBIN 14.1 g/dl (13.5-18.0); MEAN CELL VOLUME 87 fl (80.0-100.0); MEAN CORPUSCULAR HEMOGLOBIN 28 pg (27.0-31.0); MEAN CORPUSCULAR HGB CONC 32 g/dl (33.0-37.0); MEAN PLATELET VOLUME 9.7 fl (7.4-10.4); PLATELET COUNT 282 K/mm3 (130-400); RED BLOOD COUNT 5.07 M/mm3 (4.20-5.60); REDCELL DISTRIBUTION WIDTH-CV 14.1 % (11.5-14.5)
[2018-05-13 05:55] LABS: CALCIUM 8.1 mg/dL (8.4-10.2); CREATININE, serum 0.93 mg/dL (0.66-1.25); MAGNESIUM 2.6 mg/dL (1.6-2.3); POTASSIUM 4.1 mmol/L (3.4-5.0)
[2018-05-13 06:38] LABS: BAND 43 % (0-10); LYMPHOCYTE 8 % (20.0-51.0); NEUTROPHILS 46 % (42.0-75.2)
[2018-05-13 06:39] LABS: PLATELET ESTIMATE NORMAL (NORMAL)
[2018-05-14] VITALS (398 sets, daily range): BP systolic 146–208; BP diastolic 69–91; PULSE 77–110; TEMP 98.7–99.3; O2SAT 74–100
[2018-05-14 05:45] LABS: CALCIUM 8.2 mg/dL (8.4-10.2); CREATININE, serum 0.96 mg/dL (0.66-1.25); POTASSIUM 3.4 mmol/L (3.4-5.0)
[2018-05-14 06:37] LABS: HEMATOCRIT 37.3 % (42.0-52.0); MEAN CELL VOLUME 87 fl (80.0-100.0); MEAN CORPUSCULAR HEMOGLOBIN 28 pg (27.0-31.0); MEAN CORPUSCULAR HGB CONC 32 g/dl (33.0-37.0); MEAN PLATELET VOLUME 9.8 fl (7.4-10.4); PLATELET COUNT 192 K/mm3 (130-400); REDCELL DISTRIBUTION WIDTH-CV 14.2 % (11.5-14.5)
[2018-05-14 07:18] LABS: BAND 37 % (0-10); LYMPHOCYTE 9 % (20.0-51.0); NEUTROPHILS 53 % (42.0-75.2); PLATELET ESTIMATE NORMAL (NORMAL)
[2018-05-15] VITALS (331 sets, daily range): BP systolic 138–179; BP diastolic 67–89; PULSE 83–125; TEMP 97.3–100; O2SAT 87–100
[2018-05-15 05:51] LABS: BASO % 0.2 % (0.0-2.0); EOS # 0.1 (0.0-0.7); EOS % 0.4 % (0-4.0); GRAN # 9.4 (1.4-6.5); GRAN % 81.9 % (42.2-75.2); HEMATOCRIT 38.6 % (42.0-52.0); HEMOGLOBIN 12.4 g/dl (13.5-18.0); LYMPH # 1.5 (1.2-3.4); MEAN CELL VOLUME 86 fl (80.0-100.0); MEAN CORPUSCULAR HEMOGLOBIN 28 pg (27.0-31.0); MEAN CORPUSCULAR HGB CONC 32 g/dl (33.0-37.0); MEAN PLATELET VOLUME 9.8 fl (7.4-10.4); MONO # 0.4 (0.1-0.6); MONO % 3.8 % (1.7-9.3); PLATELET COUNT 243 K/mm3 (130-400); RED BLOOD COUNT 4.49 M/mm3 (4.20-5.60); REDCELL DISTRIBUTION WIDTH-CV 14.2 % (11.5-14.5)
[2018-05-15 06:02] LABS: CALCIUM 8.4 mg/dL (8.4-10.2); CREATININE, serum 0.94 mg/dL (0.66-1.25); POTASSIUM 3.4 mmol/L (3.4-5.0)
[2018-05-15 06:16] LABS: PHOSPHOROUS 2.7 mg/dL (2.5-4.5)
[2018-05-15 17:23] LABS: ARTERIAL BLOOD GAS PCO2 37.5 mmHg (35-45); ARTERIAL BLOOD GAS PO2 70.1 mmHg (80-100); ARTERIAL BLOOD GAS pH 7.47 (7.35-7.45)
[2018-05-15 17:24] LABS: ARTERIAL BLD GAS O2 SATURATION 94.3 % (92-100); ARTERIAL BLOOD GAS BASE EXCESS 2.8 (-2-2); ARTERIAL BLOOD GAS HCO3 26.4 meq/L (22-26)
[2018-05-15 18:15] LABS: BASO % 0.3 % (0.0-2.0); EOS % 0.3 % (0-4.0); GRAN # 9.9 (1.4-6.5); GRAN % 85.5 % (42.2-75.2); HEMATOCRIT 37.6 % (42.0-52.0); HEMOGLOBIN 12.4 g/dl (13.5-18.0); LYMPH # 1.1 (1.2-3.4); LYMPH % 9.3 % (20.0-51.0); MEAN CELL VOLUME 86 fl (80.0-100.0); MEAN CORPUSCULAR HEMOGLOBIN 28 pg (27.0-31.0); MEAN CORPUSCULAR HGB CONC 33 g/dl (33.0-37.0); MEAN PLATELET VOLUME 9.9 fl (7.4-10.4); MONO # 0.5 (0.1-0.6); PLATELET COUNT 226 K/mm3 (130-400); REDCELL DISTRIBUTION WIDTH-CV 14.3 % (11.5-14.5)
[2018-05-15 18:43] LABS: CALCIUM 8.2 mg/dL (8.4-10.2); CREATININE, serum 0.91 mg/dL (0.66-1.25); POTASSIUM 3.6 mmol/L (3.4-5.0)
[2018-05-16] VITALS (837 sets, daily range): BP systolic 130–198; BP diastolic 71–90; PULSE 74–96; TEMP 97.5–98.7; O2SAT 77–100
[2018-05-16 02:16] LABS: POTASSIUM 3.4 mmol/L (3.4-5.0)
[2018-05-16] MEDS ORDERED: PREVIDENT5000PLUS PO (04:04)
[2018-05-16 05:28] LABS: BASO % 0.3 % (0.0-2.0); EOS # 0.1 (0.0-0.7); EOS % 1.3 % (0-4.0); GRAN # 6.5 (1.4-6.5); GRAN % 74.7 % (42.2-75.2); LYMPH # 1.5 (1.2-3.4); MEAN CELL VOLUME 87 fl (80.0-100.0); MEAN CORPUSCULAR HEMOGLOBIN 28 pg (27.0-31.0); MEAN CORPUSCULAR HGB CONC 32 g/dl (33.0-37.0); MEAN PLATELET VOLUME 9.6 fl (7.4-10.4); MONO # 0.5 (0.1-0.6); MONO % 5.6 % (1.7-9.3); PLATELET COUNT 197 K/mm3 (130-400); RED BLOOD COUNT 3.95 M/mm3 (4.20-5.60); REDCELL DISTRIBUTION WIDTH-CV 14.4 % (11.5-14.5)
[2018-05-16 05:29] LABS: HEMATOCRIT 34.5 % (42.0-52.0)
[2018-05-16 05:38] LABS: CREATININE, serum 0.88 mg/dL (0.66-1.25)
[2018-05-17] VITALS (8 sets, daily range): BP systolic 123–194; BP diastolic 61–82; PULSE 87–115; TEMP 97.9–100
[2018-05-17 06:00] LABS: HEMOGLOBIN 11.8 g/dl (13.5-18.0); MEAN CELL VOLUME 87 fl (80.0-100.0); MEAN CORPUSCULAR HEMOGLOBIN 28 pg (27.0-31.0); MEAN CORPUSCULAR HGB CONC 32 g/dl (33.0-37.0); MEAN PLATELET VOLUME 10.4 fl (7.4-10.4); PLATELET COUNT 266 K/mm3 (130-400); RED BLOOD COUNT 4.24 M/mm3 (4.20-5.60); REDCELL DISTRIBUTION WIDTH-CV 14.6 % (11.5-14.5)
[2018-05-17 06:07] LABS: HEMATOCRIT 36.8 % (42.0-52.0)
[2018-05-17 06:16] LABS: CREATININE, serum 0.87 mg/dL (0.66-1.25); POTASSIUM 3.4 mmol/L (3.4-5.0)
[2018-05-17 06:48] LABS: BAND 13 % (0-10); EOSINOPHIL 1 % (0-4); LYMPHOCYTE 23 % (20.0-51.0); NEUTROPHILS 62 % (42.0-75.2); PLATELET ESTIMATE NORMAL (NORMAL)
[2018-05-17 06:49] LABS: HYPOCHROMIA 1+
[2018-05-18 04:59] VITALS: BP 130/64; PULSE 99; TEMP 98.8
[2018-05-18 05:57] LABS: HEMOGLOBIN 11.5 g/dl (13.5-18.0); MEAN CELL VOLUME 88 fl (80.0-100.0); MEAN CORPUSCULAR HEMOGLOBIN 28 pg (27.0-31.0); MEAN CORPUSCULAR HGB CONC 32 g/dl (33.0-37.0); MEAN PLATELET VOLUME 10.3 fl (7.4-10.4); PLATELET COUNT 291 K/mm3 (130-400); RED BLOOD COUNT 4.14 M/mm3 (4.20-5.60); REDCELL DISTRIBUTION WIDTH-CV 15.1 % (11.5-14.5)
[2018-05-18 06:04] LABS: HEMATOCRIT 36.4 % (42.0-52.0)
[2018-05-18 06:10] LABS: CALCIUM 7.9 mg/dL (8.4-10.2); CREATININE, serum 0.93 mg/dL (0.66-1.25); POTASSIUM 3.8 mmol/L (3.4-5.0)
[2018-05-18 07:03] LABS: BAND 9 % (0-10); EOSINOPHIL 2 % (0-4); LYMPHOCYTE 10 % (20.0-51.0); NEUTROPHILS 75 % (42.0-75.2)
[2018-05-18 07:04] LABS: PLATELET ESTIMATE NORMAL (NORMAL)
[2018-05-18 07:06] LABS: HYPOCHROMIA 2+
[2018-05-18 08:36] VITALS: BP 139/58; PULSE 101; TEMP 98.4
[2018-05-18 11:45] VITALS: BP 136/58; PULSE 84; TEMP 98.2
[2018-05-18 16:10] VITALS: BP 142/78; PULSE 95; TEMP 98.6
[2018-05-18 19:54] VITALS: BP 148/70; PULSE 96; TEMP 98.1
[2018-05-19] VITALS (7 sets, daily range): BP systolic 145–179; BP diastolic 57–88; PULSE 68–858; TEMP 97.6–98.4
[2018-05-19 05:58] LABS: CREATININE, serum 0.95 mg/dL (0.66-1.25); POTASSIUM 4.2 mmol/L (3.4-5.0)
[2018-05-19 06:03] LABS: HEMATOCRIT 37.9 % (42.0-52.0); HEMOGLOBIN 11.6 g/dl (13.5-18.0); MEAN CELL VOLUME 89 fl (80.0-100.0); MEAN CORPUSCULAR HEMOGLOBIN 27 pg (27.0-31.0); MEAN CORPUSCULAR HGB CONC 31 g/dl (33.0-37.0); MEAN PLATELET VOLUME 10.2 fl (7.4-10.4); PLATELET COUNT 337 K/mm3 (130-400); RED BLOOD COUNT 4.27 M/mm3 (4.20-5.60); REDCELL DISTRIBUTION WIDTH-CV 14.9 % (11.5-14.5)
[2018-05-19 07:09] LABS: BAND 1 % (0-10); EOSINOPHIL 1 % (0-4); LYMPHOCYTE 13 % (20.0-51.0); NEUTROPHILS 82 % (42.0-75.2)
[2018-05-19 07:10] LABS: PLATELET ESTIMATE NORMAL (NORMAL)
[2018-05-19 07:11] LABS: POLYCHROMASIA 1+
[2018-05-19 13:47] LABS: COLLECTION METHOD CLEAN CATCH
[2018-05-19 13:55] LABS: PH 7 (5-8); SQUAMOUS EPITHELIAL 0-2 /hpf; URINE APPEARANCE Clear; URINE BACTERIA None Seen /hpf; URINE BILIRUBIN Negative (NEGATIVE); URINE BLOOD 1+ (NEGATIVE); URINE COLOR Yellow; URINE GLUCOSE Negative (NEGATIVE); URINE KETONE Negative (NEGATIVE); URINE LEUKOCYTE ESTERASE Trace (NEGATIVE); URINE NITRATE Negative (NEGATIVE); URINE PROTEIN(semi-quant) Negative (NEGATIVE); URINE UROBILINOGEN Negative (NEGATIVE)
[2018-05-20 04:45] VITALS: BP 157/71; PULSE 78; TEMP 98.3
[2018-05-20 06:15] LABS: BASO # 0.1 (0.0-0.2); BASO % 0.3 % (0.0-2.0); EOS # 0.1 (0.0-0.7); EOS % 0.7 % (0-4.0); GRAN # 14.8 (1.4-6.5); GRAN % 81.5 % (42.2-75.2); HEMATOCRIT 38.9 % (42.0-52.0); HEMOGLOBIN 12.1 g/dl (13.5-18.0); LYMPH # 2.1 (1.2-3.4); LYMPH % 11.4 % (20.0-51.0); MEAN CELL VOLUME 88 fl (80.0-100.0); MEAN CORPUSCULAR HEMOGLOBIN 27 pg (27.0-31.0); MEAN CORPUSCULAR HGB CONC 31 g/dl (33.0-37.0); MEAN PLATELET VOLUME 10.1 fl (7.4-10.4); MONO # 0.9 (0.1-0.6); MONO % 4.7 % (1.7-9.3); PLATELET COUNT 363 K/mm3 (130-400); RED BLOOD COUNT 4.42 M/mm3 (4.20-5.60); REDCELL DISTRIBUTION WIDTH-CV 14.6 % (11.5-14.5)
[2018-05-20 06:37] LABS: CALCIUM 8.1 mg/dL (8.4-10.2); CREATININE, serum 0.86 mg/dL (0.66-1.25); POTASSIUM 4.1 mmol/L (3.4-5.0)
[2018-05-20 08:32] VITALS: BP 156/75; PULSE 90; TEMP 97.8
[2018-05-20 11:54] VITALS: BP 156/76; PULSE 97; TEMP 98.9
[2018-05-20 15:17] VITALS: BP 131/60; PULSE 89; TEMP 98.4
[2018-05-20 19:20] VITALS: BP 125/65; PULSE 86; TEMP 97.6
[2018-05-21 03:18] VITALS: BP 125/70; PULSE 80; TEMP 98.5
[2018-05-21 05:56] LABS: BASO % 0.3 % (0.0-2.0); EOS # 0.2 (0.0-0.7); EOS % 1.2 % (0-4.0); GRAN # 9.6 (1.4-6.5); GRAN % 75.9 % (42.2-75.2); HEMATOCRIT 37.8 % (42.0-52.0); HEMOGLOBIN 11.7 g/dl (13.5-18.0); LYMPH # 2.1 (1.2-3.4); LYMPH % 16.6 % (20.0-51.0); MEAN CELL VOLUME 88 fl (80.0-100.0); MEAN CORPUSCULAR HEMOGLOBIN 27 pg (27.0-31.0); MEAN CORPUSCULAR HGB CONC 31 g/dl (33.0-37.0); MEAN PLATELET VOLUME 10.1 fl (7.4-10.4); MONO # 0.7 (0.1-0.6); MONO % 5.1 % (1.7-9.3); PLATELET COUNT 271 K/mm3 (130-400); RED BLOOD COUNT 4.28 M/mm3 (4.20-5.60); REDCELL DISTRIBUTION WIDTH-CV 14.8 % (11.5-14.5)
[2018-05-21 06:09] LABS: CALCIUM 8.2 mg/dL (8.4-10.2); CREATININE, serum 0.88 mg/dL (0.66-1.25); POTASSIUM 3.9 mmol/L (3.4-5.0)
[2018-05-21 07:45] VITALS: BP 134/68; PULSE 88; TEMP 97.4
[2018-05-21 12:14] VITALS: BP 143/68; PULSE 87; TEMP 97.7
[2018-05-21 15:35] VITALS: BP 142/68; PULSE 73; TEMP 98
[2018-05-21 19:30] VITALS: BP 131/70; PULSE 77; TEMP 98.5
[2018-05-22 03:03] VITALS: BP 138/62; PULSE 75; TEMP 98.2
[2018-05-22 05:59] LABS: BASO % 0.3 % (0.0-2.0); EOS # 0.1 (0.0-0.7); EOS % 1.1 % (0-4.0); GRAN # 9.3 (1.4-6.5); GRAN % 75.6 % (42.2-75.2); HEMATOCRIT 37.4 % (42.0-52.0); HEMOGLOBIN 11.7 g/dl (13.5-18.0); LYMPH % 16.4 % (20.0-51.0); MEAN CELL VOLUME 89 fl (80.0-100.0); MEAN CORPUSCULAR HEMOGLOBIN 28 pg (27.0-31.0); MEAN CORPUSCULAR HGB CONC 31 g/dl (33.0-37.0); MEAN PLATELET VOLUME 10.3 fl (7.4-10.4); MONO # 0.7 (0.1-0.6); MONO % 5.8 % (1.7-9.3); PLATELET COUNT 365 K/mm3 (130-400); RED BLOOD COUNT 4.21 M/mm3 (4.20-5.60); REDCELL DISTRIBUTION WIDTH-CV 14.6 % (11.5-14.5)
[2018-05-22 06:13] LABS: CALCIUM 8.1 mg/dL (8.4-10.2); CREATININE, serum 0.79 mg/dL (0.66-1.25); POTASSIUM 3.8 mmol/L (3.4-5.0)
[2018-05-22 07:25] VITALS: BP 134/61; PULSE 85; TEMP 97.8
[2018-05-22] MEDS ORDERED: NORVASC 10MG10 MG PO (09:15)
[2018-05-22] MEDS ORDERED: LOPRESSOR 225 MG/TAB PO (09:15)
[2018-05-22 10:48] VITALS: BP 134/61; PULSE 85; TEMP 97.8
[2018-05-22 11:21] VITALS: BP 129/68; PULSE 78; TEMP 98.1
== END 2018-05-22 12:51 | DRG 853 ==
LOC: COL.ER 07:31 → ICU 09:34 → SURG 05-14 19:23 → ICU 05-15 17:22 → SURG 05-15 17:22 → ICU 05-16 14:09 → SURG 05-16 14:09
PROVIDERS: Emergency Medicine; Hospitalist; Internal Medicine; Internal Medicine Pulmonary Disease; Nurse Practitioner Family; Physician Assistant; Surgery
PROC: 0DB80ZZ Excision of Small Intestine, Open Approach (ICD-10-PCS; principal; 2018-05-12 15:00)
PROC: 0DN80ZZ Release Small Intestine, Open Approach (ICD-10-PCS; 2018-05-12 15:00)
DX: A41.9 Sepsis, unspecified organism (principal); J96.01 Acute respiratory failure with hypoxia; K56.52 Intestinal adhesions [bands] with complete obstruction; J98.11 Atelectasis; N39.0 Urinary tract infection, site not specified; E87.3 Alkalosis; E44.0 Moderate protein-calorie malnutrition; T81.41XA Infection following a procedure, superficial incisional surgical site, initial encounter; E87.4 Mixed disorder of acid-base balance; I47.1 Supraventricular tachycardia; Z93.3 Colostomy status; E11.9 Type 2 diabetes mellitus without complications; I10 Essential (primary) hypertension; Z87.820 Personal history of traumatic brain injury; D50.9 Iron deficiency anemia, unspecified; B96.1 Klebsiella pneumoniae [K. pneumoniae] as the cause of diseases classified elsewhere; L89.329 Pressure ulcer of left buttock, unspecified stage; L89.319 Pressure ulcer of right buttock, unspecified stage; F32.9 Major depressive disorder, single episode, unspecified; F22 Delusional disorders; Z68.28 Body mass index [BMI] 28.0-28.9, adult; M54.5 Low back pain; G89.29 Other chronic pain; E87.6 Hypokalemia
CPT/HCPCS: 99223-AI; 99232-AI; 99233-AI; 99239; A9284; C1751; C9113; J0360; J0610; J1100; J1644; J1815; J2060; J2270; J2405; J2543; J2704; J2710; J3010; J3370; J3475; J3480; J7030; J7050; J7120; J7131; Q9967

== ENCOUNTER → 2018-05-31 | Outpatient (REF) ==
[~2018-05-31] MED LIST changes: +BACITRACIN Z500 U/GM TOP; +CALMOSEPTINE OI71 GM TOP; +IPRATROPIUM BROM3 M1 INH; +LOPRESSOR 225 MG/TAB PO; +NORVASC 10MG10 MG PO; +PREVIDENT5000PLUS PO; +[UNRECOGNIZED DRUG - MIXTURE] PO
[2018-05-31 16:49] LABS: PRE ALBUMIN 20.5 mg/dL (17.6-36.0)
[2018-05-31 17:10] LABS: THYROID STIMULATING HORMONE 3.12 uIU/mL (0.465-4.680)
== END ==
LOC: ZLAB.WCH 16:25
PROVIDERS: Internal Medicine
DX: Z01.89 Encounter for other specified special examinations (principal)

== ENCOUNTER 2018-08-14 09:08 | Emergency (ER) | payer MEDICARE, BC ==
[~2018-08-14] VITALS: Ht 182.9 cm; Wt 93.2 kg
[2018-08-14 09:13] VITALS: TEMP 97
[2018-08-14] MEDS ORDERED: FLOMAX 0.40.4 MG/CAP PO (09:54)
[2018-08-14] MEDS ORDERED: PREVIDENTGEL1.1 DT (09:59)
[2018-08-14] MEDS ORDERED: SENOKOT8.6 MG PO (10:00)
[2018-08-14] MEDS ORDERED: SF 5000 PLUS1.1% DT (10:02)
[2018-08-14] MEDS ORDERED: CALMOSEPTINE OI71 GM TP (10:14)
[2018-08-14] MEDS ORDERED: REFRESH OPTIVE0.4 M1 OP (10:15)
[2018-08-14] MEDS ORDERED: NORCO 325 MG-51 TAB PO (12:16)
[2018-08-14 12:48] VITALS: BP 160/82; PULSE 69
== END 2018-08-14 12:48 | disposition home or self-care (01) ==
LOC: COL.ER 09:08
DX: S80.11XA Contusion of right lower leg, initial encounter (principal); W05.0XXA Fall from non-moving wheelchair, initial encounter; Y92.129 Unspecified place in nursing home as the place of occurrence of the external cause
CPT/HCPCS: J1885; Q4045

== ENCOUNTER → 2018-09-16 | Outpatient (REF) ==
[~2018-09-16] MED LIST changes: +CALMOSEPTINE OI71 GM TP; +NORCO 325 MG-51 TAB PO
[2018-09-16 17:37] LABS: IRON,SERUM 54 ug/dL (35-150)
[2018-09-16 17:47] LABS: TOTAL IRON BINDING CAPACITY 229 ug/dL (261-462)
[2018-09-16 18:58] LABS: FERRITIN 347 ng/mL (18-464)
== END ==
LOC: ZLAB.WCH 17:21
PROVIDERS: Internal Medicine
DX: Z01.89 Encounter for other specified special examinations (principal)

== ENCOUNTER 2020-05-16 15:26 | Inpatient (IN) | payer MEDICARE, BC ==
[~2020-05-16] VITALS: Ht 182.9 cm; Wt 110.0 kg
[2020-05-16 16:54] LABS: BASO % 0.4 % (0.0-2.0); EOS % 0.5 % (0-4.0); GRAN # 6.1 (1.4-6.5); GRAN % 75.9 % (42.2-75.2); HEMOGLOBIN 14.9 g/dl (13.5-18.0); LYMPH # 1.2 (1.2-3.4); LYMPH % 15.3 % (20.0-51.0); MEAN CELL VOLUME 87 fl (80.0-100.0); MEAN CORPUSCULAR HEMOGLOBIN 29 pg (27.0-31.0); MEAN CORPUSCULAR HGB CONC 33 g/dl (33.0-37.0); MEAN PLATELET VOLUME 10.1 fl (7.4-10.4); MONO # 0.6 (0.1-0.6); MONO % 7.5 % (1.7-9.3); PLATELET COUNT 206 K/mm3 (130-400); RED BLOOD COUNT 5.19 M/mm3 (4.20-5.60); REDCELL DISTRIBUTION WIDTH-CV 12.7 % (11.5-14.5)
[2020-05-16 17:03] LABS: ALBUMIN 3.8 gm/dL (3.5-5.0); BILIRUBIN,TOTAL 0.4 mg/dL (0.0-1.0); C-REACTIVE PROTEIN 5.4 mg/dL (0.0-0.9); CALCIUM 8.3 mg/dL (8.4-10.2); CREATININE, serum 0.82 (0.66-1.25); POTASSIUM 3.9 mmol/L (3.4-5.0); TOTAL PROTEIN 7.4 gm/dL (6.4-8.2)
[2020-05-16 17:41] LABS: COLLECTION METHOD CLEAN CATCH
[2020-05-16 17:53] LABS: AMORPHOUS CRYSTAL Present /uL; MUCOUS Present /lpf; PH 7 (5-8); URINE APPEARANCE Cloudy; URINE BACTERIA Moderate /hpf; URINE BILIRUBIN Negative (NEGATIVE); URINE BLOOD 1+ (NEGATIVE); URINE COLOR Yellow; URINE GLUCOSE Negative (NEGATIVE); URINE KETONE Negative (NEGATIVE); URINE LEUKOCYTE ESTERASE 3+ (NEGATIVE); URINE NITRATE Positive (NEGATIVE); URINE PROTEIN(semi-quant) Negative (NEGATIVE); URINE UROBILINOGEN Negative (NEGATIVE)
[2020-05-16] MEDS ORDERED: ALBUTEROL SULFAT3 M3 IH (20:20)
[2020-05-16] MEDS ORDERED: ALEVE 220MG220 MG PO (20:21)
[2020-05-16] MEDS ORDERED: LIORESAL 1010 MG/TAB PO (20:22)
[2020-05-16] MEDS ORDERED: GENTLE LAXATIVE10 MG RC (20:23)
[2020-05-16] MEDS ORDERED: [UNRECOGNIZED DRUG - OTHER] PO (20:23)
[2020-05-16] MEDS ORDERED: MIRALAX PA17 GM/Dose PO (20:24)
[2020-05-16] MEDS ORDERED: KLONOPIN 0.5MG0.5 MG PO ×2 (20:26)
[2020-05-16] MEDS ORDERED: ENULOSE10 GM/151 PO (20:27)
[2020-05-16] MEDS ORDERED: LINZESS145CAP PO (20:27)
[2020-05-16] MEDS ORDERED: MILK OF MA400 MG/52 (20:28)
[2020-05-16] MEDS ORDERED: NYAMYC100000 U/G TP (20:29)
--- NOTE | 2020-05-16 21:00 | NUR ---
Patient to medical room 352 via ED stretcher at this time. Patient is alert and oriented, with speech that is difficult to understand. He wears 2 liters oxygen via nasal cannula and shows no signs of increased work of breathing. He does not have any complaints of pain. He has a colostomy and a condom catheter in place. A new-looking abrasion is noted on his left knee but patient does not seem to know where it came from. His bottom is red/purple and non-blanchable; No open areas are noted. Lung sounds are clear over diminished and HR is tachycardic at 104 bpm with regular rhythm. IV fluids and antibiotic administration is initiated at this time. Patient's father, Santos, is updated by this RN on patient's status and Assessment B information is obtained from his father. Patient was assisted with room phone as well, to speak with his father. Call light in reach and comfort measures met. Will continue to monitor.
[2020-05-16 21:30] VITALS: BP 129/63; PULSE 105; TEMP 98.5
[2020-05-16 22:33] VITALS: BP 129/63; PULSE 105; TEMP 98.5
[2020-05-16 23:29] VITALS: BP 115/48; PULSE 86; TEMP 98.9
[2020-05-17] VITALS (7 sets, daily range): BP systolic 105–126; BP diastolic 50–72; PULSE 63–68; TEMP 97.5–98.1
[2020-05-17 07:23] LABS: ALBUMIN 3.3 gm/dL (3.5-5.0); BILIRUBIN,TOTAL 0.4 mg/dL (0.0-1.0); CALCIUM 8.1 mg/dL (8.4-10.2); CREATININE, serum 0.71 (0.66-1.25); POTASSIUM 4.2 mmol/L (3.4-5.0); TOTAL PROTEIN 6.7 gm/dL (6.4-8.2)
--- NOTE | 2020-05-17 11:36 | NUR ---
Chaplain amador for patient while standing outside of door.
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
--- NOTE | 2020-05-18 01:27 | NUR ---
Patient resting in bed upon enter the room. Patient alert. Patient appears to be comfortable. No s/s of pain or discomfort. Patient denies SOB or difficulty breathing. Breathing even and unlabored. Scheduled medications given per JUL. Applied Calmoseptine to coccyx and bilateral buttock reddened area. Right hand IV site has no s/s of complications. Colostomy bag changed at this time. Noticed external catheter was loose. Re-attached external catheter securely to penis. Call light within reach. Will continue to monitor.
[2020-05-18 04:10] VITALS: BP 127/64; PULSE 58; TEMP 97
--- NOTE | 2020-05-18 04:29 | NUR ---
Patient awake and greet this nurse by saying, "Good morning!" upon enter the room at 4 am. Colostomy bag is almost full with soft stool. Cleaned colostomy site and applied new colostomy bag. External catheter to drain urine was leaking and bed was soaked. Changed gown and bed sheets. Mery-care provided. Applied new external catheter securely to penis. Patient denies any needs at this time.
[2020-05-18 07:57] VITALS: BP 108/49; PULSE 70; TEMP 97.8
--- NOTE | 2020-05-18 09:44 | NUR ---
Assessent complete. Patient sitting up in bed on entry, pleasant and conversational though difficult to understand due to aphasia. No complaints of pain or discomfort. External cath was replaced as it had been removed or fell off. Colostomy currently intact, pt producing stool. Patient ate breakfast on his own with no issues despite small messes. IV site cd&i, charan wrap applied to wrist to keep from kinking while abx run. Fresh gown provided after breakfast. Call light is in reach.
--- NOTE | 2020-05-18 10:47 | NUR ---
Admission B incorrectly indicated patient has ng NG tube. Confirmed with RNNasreen, that patient does not have an NG tube and is tolerating pureed diet without issue.
[2020-05-18] MEDS ORDERED: DOXYCYCLINE 10100 MG PO (11:11)
[2020-05-18] MEDS ORDERED: PROAIR HFA0.09 MG/AC IH (11:12)
[2020-05-18] MEDS ORDERED: DECADRON6 MG PO (11:13)
[2020-05-18] MEDS ORDERED: MIRALAX PA17 GM/Dose PO (11:13)
[2020-05-18] MEDS ORDERED: TYLENOL SU650 MG/SUP RC (11:14)
[2020-05-18] MEDS ORDERED: ROBITUSSIN100 MG/5 M PO (11:14)
[2020-05-18] MEDS ORDERED: NAPROSYN 2250 MG/TAB PO (11:15)
[2020-05-18] MEDS ORDERED: NOVOLOG 100U100 U/M1 SQ (11:17)
[2020-05-18] MEDS ORDERED: OMNICEF 300MG300 MG PO (11:19)
[2020-05-18 11:49] VITALS: BP 124/51; PULSE 67; TEMP 98.4
[2020-05-18] MEDS ORDERED: LIORESAL 1010 MG/TAB PO (12:29)
--- NOTE | 2020-05-18 13:33 | NUR ---
The patient is to discharge today, 05/18 back to [facility] and will have skilled orders. The patient will be transported at 1430. Discharge orders faxed. SW contacted the patient's father, Santos to provide the above update. The team was in agreeance. There are no additional needs.
--- NOTE | 2020-05-18 15:00 | NUR ---
Patient left the floor at this time. Belongings sand paperwork packet were provided to the patient. Colostomy bag was freeshly changed before leaving. Total bed bath provided before leaving. No other questions or concerns.
== END 2020-05-18 16:26 | DRG 871 ==
LOC: COL.ER 15:26 → MEDICAL 18:34
PROVIDERS: Nurse Practitioner; Student in an Organized Health Care Education/Training Program; ADMIT Internal Medicine
DX: A41.9 Sepsis, unspecified organism (principal); U07.1 COVID-19; J12.89 Other viral pneumonia; J96.01 Acute respiratory failure with hypoxia; N39.0 Urinary tract infection, site not specified; I47.1 Supraventricular tachycardia; B96.4 Proteus (mirabilis) (morganii) as the cause of diseases classified elsewhere; L89.309 Pressure ulcer of unspecified buttock, unspecified stage; F22 Delusional disorders; F32.9 Major depressive disorder, single episode, unspecified; K27.9 Peptic ulcer, site unspecified, unspecified as acute or chronic, without hemorrhage or perforation; I10 Essential (primary) hypertension; G89.29 Other chronic pain; M54.9 Dorsalgia, unspecified; E11.9 Type 2 diabetes mellitus without complications; Z93.3 Colostomy status
CPT/HCPCS: 99223-AI; 99239; C9113; J0696; J1100; J1650; J1815; J7030; J8540

== ENCOUNTER → 2020-05-29 | Outpatient (CLI) | payer MEDICARE, BC ==
[~2020-05-29] MED LIST changes: +DECADRON6 MG PO; +DOXYCYCLINE 10100 MG PO; +GENTLE LAXATIVE10 MG RC; +KLONOPIN 0.5MG0.5 MG PO; +MILK OF MA400 MG/52; +NAPROSYN 2250 MG/TAB PO; +NOVOLOG 100U100 U/M1 SQ; +OMNICEF 300MG300 MG PO; +PROAIR HFA0.09 MG/AC IH; +ROBITUSSIN100 MG/5 M PO; +[UNRECOGNIZED DRUG - OTHER] PO
== END ==
LOC: COL.RAD 10:42
DX: U07.1 COVID-19 (principal)

== ENCOUNTER → 2021-03-01 | Outpatient (CLI) | payer MEDICARE, BC ==
[2021-03-01 16:47] LABS: MUCOUS Present /lpf; PH 6 (5-8); SQUAMOUS EPITHELIAL 0-2 /hpf; URINE APPEARANCE Hazy; URINE BACTERIA None Seen /hpf; URINE BILIRUBIN Negative (NEGATIVE); URINE BLOOD Negative (NEGATIVE); URINE CALCIUM OXALATE CRYSTAL Present /hpf; URINE COLOR Yellow; URINE GLUCOSE Negative (NEGATIVE); URINE KETONE Negative (NEGATIVE); URINE LEUKOCYTE ESTERASE Negative (NEGATIVE); URINE NITRATE Negative (NEGATIVE); URINE PROTEIN(semi-quant) Negative (NEGATIVE); URINE UROBILINOGEN Negative (NEGATIVE)
[2021-03-01 17:30] LABS: COLLECTION METHOD CATHETER
== END ==
LOC: ZCOL.LAB 16:01
PROVIDERS: Internal Medicine
DX: N39.0 Urinary tract infection, site not specified (principal)

== ENCOUNTER 2021-10-23 04:28 | Inpatient (IN) | payer MEDICARE, BC ==
[~2021-10-23] VITALS: Ht 182.9 cm; Wt 102.3 kg
[~2021-10-23 04:28] MED LIST changes: +BICARSIM FORTE1 TA1; -FEROSUL325 MG PO; +FERROUSAL325 MG PO; +PEPCID 20MG TAB20 MG PO; +PEPCID40 MG PO; +PREVIDENT5000PLUS DT; +VITAMINC1000TA; +VITAMIND3 5000 PO; +ZINC GLUCONATE PO
[2021-10-23 05:07] LABS: BASO # 0.1 K/mm3 (0.0-0.2); BASO % 0.3 % (0.0-2.0); EOS % 0.2 % (0.0-4.0); GRAN # 14.6 K/mm3 (1.4-6.5); HEMATOCRIT 49.1 % (42.0-52.0); HEMOGLOBIN 16.3 g/dl (13.5-18.0); LYMPH # 2.4 K/mm3 (1.2-3.4); LYMPH % 13.7 % (20.0-51.0); MEAN CELL VOLUME 86 fl (80.0-100.0); MEAN CORPUSCULAR HEMOGLOBIN 29 pg (27-31); MEAN CORPUSCULAR HGB CONC 33 g/dl (33.0-37.0); MEAN PLATELET VOLUME 9.7 fl (7.4-10.4); MONO # 0.4 K/mm3 (0.1-0.6); MONO % 2.5 % (1.7-9.3); PLATELET COUNT 230 K/mm3 (130-400); RED BLOOD COUNT 5.68 M/mm3 (4.20-5.60); REDCELL DISTRIBUTION WIDTH-CV 12.8 % (11.5-14.5)
[2021-10-23 05:13] LABS: INR 1.2 (0.8-3.0); PROTHROMBIN TIME 13.6 SECONDS (9.7-12.8)
[2021-10-23 05:28] LABS: ALANINE AMINOTRANSFERASE 20 U/L (0-55); ALBUMIN 3.1 gm/dL (3.4-4.8); ALKALINE PHOSPHATASE 104 U/L (40-150); ANION GAP 12 mmol/L (7-16); AST,SGOT 15 U/L (5-34); BILIRUBIN,TOTAL 0.5 mg/dL (0.2-1.2); BLOOD UREA NITROGEN 8 mg/dL (8-26); CALCIUM 8.3 mg/dL (8.4-10.2); CARBON DIOXIDE 31 mmol/L (23-31); CHLORIDE 100 mmol/L (98-107); CREATININE, serum 0.89 mg/dL (0.72-1.25); GLUCOSE 111 mg/dL (70-99); POTASSIUM 3.2 mmol/L (3.5-4.5); SODIUM 143 mmol/L (136-145)
[2021-10-23 05:36] LABS: TROPONIN-I < 0.010 ng/mL (0.00-0.033)
[2021-10-23 06:00] LABS: ARTERIAL BLD GAS O2 SATURATION 92.4 % (92-100); ARTERIAL BLD GAS TCO2 CT 27.1; ARTERIAL BLOOD GAS BASE EXCESS 0.6 (-2-2); ARTERIAL BLOOD GAS HCO3 25.7 meq/L (22-26); ARTERIAL BLOOD GAS PO2 61.8 mmHg (80-100)
[2021-10-23 06:35] LABS: COLLECTION METHOD CLEAN CATCH
[2021-10-23 06:56] LABS: MUCOUS Present (NOT PRESENT); PH 5 (5-8); SQUAMOUS EPITHELIAL 0-2 /hpf (0-10); URINE APPEARANCE Hazy (CLEAR/HAZY); URINE BACTERIA Many /hpf (NONE SEEN); URINE BILIRUBIN Negative (NEGATIVE); URINE BLOOD Negative (NEGATIVE); URINE COLOR Yellow (YELLOW); URINE GLUCOSE Negative (NEGATIVE); URINE KETONE Negative (NEGATIVE); URINE LEUKOCYTE ESTERASE Trace (NEGATIVE); URINE NITRATE Positive (NEGATIVE); URINE PROTEIN(semi-quant) Negative (NEGATIVE); URINE UROBILINOGEN Negative (NEGATIVE)
[2021-10-23 08:24] VITALS: BP 100/52; PULSE 108; TEMP 98.6
[2021-10-23 09:33] LABS: MAGNESIUM 1.5 mg/dL (1.6-2.6); PHOSPHOROUS 3.3 mg/dL (2.3-4.7)
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
[2021-10-23 11:46] VITALS: BP 89/52; PULSE 97; TEMP 98.1
[2021-10-23 16:18] VITALS: BP 125/65; PULSE 98; TEMP 98.5
--- NOTE | 2021-10-23 20:00 | NUR ---
Patient is resting in bed, alert and oriented. Slurred speach. VSS, no fever. States discomfort in his abdomen. Assessment completed, medicattions provided. No other needs at this time. Call light within reach.
[2021-10-23 20:03] VITALS: BP 108/58; PULSE 81; TEMP 97.9
[2021-10-23 23:24] VITALS: BP 116/51; PULSE 80; TEMP 97.6
[2021-10-24 03:23] VITALS: BP 109/60; PULSE 82; TEMP 98
--- NOTE | 2021-10-24 06:30 | NUR ---
Patient has had a calm night. Continues with non productive cough that gets worse when he try to speak. Report will be given to day RN.
[2021-10-24 06:45] LABS: BASO # 0.1 K/mm3 (0.0-0.2); BASO % 0.3 % (0.0-2.0); EOS # 0.1 K/mm3 (0.0-0.7); EOS % 0.6 % (0.0-4.0); GRAN # 12.4 K/mm3 (1.4-6.5); GRAN % 79.2 % (42.2-75.2); HEMATOCRIT 43.1 % (42.0-52.0); LYMPH # 2.4 K/mm3 (1.2-3.4); LYMPH % 15.1 % (20.0-51.0); MEAN CELL VOLUME 89 fl (80.0-100.0); MEAN CORPUSCULAR HGB CONC 32 g/dl (33.0-37.0); MEAN PLATELET VOLUME 10.3 fl (7.4-10.4); MONO # 0.7 K/mm3 (0.1-0.6); MONO % 4.4 % (1.7-9.3); PLATELET COUNT 227 K/mm3 (130-400); RED BLOOD COUNT 4.85 M/mm3 (4.20-5.60); REDCELL DISTRIBUTION WIDTH-CV 13.5 % (11.5-14.5)
[2021-10-24 06:50] LABS: HEMOGLOBIN 13.8 g/dl (13.5-18.0); MEAN CORPUSCULAR HEMOGLOBIN 28 pg (27-31)
[2021-10-24 06:55] LABS: CALCIUM 8.2 mg/dL (8.4-10.2); CREATININE, serum 0.82 mg/dL (0.72-1.25); MAGNESIUM 2.2 mg/dL (1.6-2.6); POTASSIUM 4.4 mmol/L (3.5-4.5)
[2021-10-24 07:43] VITALS: BP 113/48; PULSE 72; TEMP 98.1
--- NOTE | 2021-10-24 08:27 | NUR ---
PATIENT HAS COLOSTOMY BAG. IV TO LEFT FOREARM. NO NEW CONCERNS. TOOK PILLS WELL WITH THICKENED JUICE ONE AT A TIME.
--- NOTE | 2021-10-24 10:00 | NUR ---
Initial visit; Patient and his Dad; Ed thanked for looking in on him and for offering God's blessings and prayers. will keep Heri in her prayers and will follow-up while he is a patient here.
[2021-10-24 12:04] VITALS: BP 120/61; PULSE 76; TEMP 99
--- NOTE | 2021-10-24 12:05 | NUR ---
PATIENT COLOSTOMY BAG CLEANED AND CHANGED THIS MORNING. PATIENT DAD BROUGHT SOME OF HIS HOME BAGS THAT WORK BETTER WITH HIS OSTOMY.
--- NOTE | 2021-10-24 13:19 | NUR ---
Clinical updates faxed to Dilcia at [facility]
[2021-10-24 16:04] VITALS: BP 118/59; PULSE 77; TEMP 98.2
[2021-10-24 20:06] VITALS: BP 105/49; PULSE 86; TEMP 98.5
[2021-10-25 00:06] VITALS: BP 121/52; PULSE 76; TEMP 98.8
[2021-10-25 04:21] VITALS: BP 112/5; PULSE 84; TEMP 98.2
--- NOTE | 2021-10-25 06:30 | NUR ---
PT IS AWAKE, LAYING IN BED AT THIS TIME. PT DID ASK FOR A BED BATH TODAY. DENIES ANY OTHER NEEDS AT THIS TIME.
[2021-10-25 07:00] LABS: BASO # 0.1 K/mm3 (0.0-0.2); BASO % 0.5 % (0.0-2.0); EOS # 0.1 K/mm3 (0.0-0.7); GRAN # 7.9 K/mm3 (1.4-6.5); GRAN % 72.8 % (42.2-75.2); HEMOGLOBIN 12.8 g/dl (13.5-18.0); LYMPH # 2.1 K/mm3 (1.2-3.4); LYMPH % 19.1 % (20.0-51.0); MEAN CELL VOLUME 88 fl (80.0-100.0); MEAN CORPUSCULAR HEMOGLOBIN 29 pg (27-31); MEAN CORPUSCULAR HGB CONC 33 g/dl (33.0-37.0); MEAN PLATELET VOLUME 10.3 fl (7.4-10.4); MONO # 0.7 K/mm3 (0.1-0.6); MONO % 6.2 % (1.7-9.3); PLATELET COUNT 208 K/mm3 (130-400); RED BLOOD COUNT 4.43 M/mm3 (4.20-5.60); REDCELL DISTRIBUTION WIDTH-CV 13.2 % (11.5-14.5)
[2021-10-25 07:11] LABS: CALCIUM 8.7 mg/dL (8.4-10.2); CREATININE, serum 0.72 mg/dL (0.72-1.25); POTASSIUM 4.1 mmol/L (3.5-4.5)
[2021-10-25 07:37] VITALS: BP 119/56; PULSE 65; TEMP 98.3
--- NOTE | 2021-10-25 11:21 | NUR ---
The hospitalist notified SEAMUS that the patient may be able to discharge tomorrow. SEAMUS notified Dilcia at [facility]. SW to fax updates to [facility]. SEAMUS met with the patient and his father, Santos, and updated them possible discharge tomorrow. Santos verbalized understanding and is in agreement to the plan. *Discharge plan: [facility]*
[2021-10-25 11:25] VITALS: BP 138/56; PULSE 76; TEMP 98.3
[2021-10-25 15:08] VITALS: BP 106/64; PULSE 80; TEMP 98.1
--- NOTE | 2021-10-25 15:19 | NUR ---
Dilcia, at [facility], reports that they are all good to accept the patient back tomorrow. They will just need a COVID test and request long-term care orders.
--- NOTE | 2021-10-25 18:32 | NUR ---
PATIENT HAD AN EVENFUL DAY, HAD A BEDBATH IN THE MORNING,STILL HAS SLURRED SPEECH, VSS, DENIES PAIN THROUGHOUT THE DAY.
[2021-10-25 20:18] VITALS: BP 127/78; PULSE 90; TEMP 98.5
--- NOTE | 2021-10-25 22:18 | NUR ---
Patient assessed around 1944. Alert and oriented. Denies pain and discomfort. Peripheral INT to left forearm. Has moist, productive cough. LS CTA in upper lobes, diminished in lower. Colostomy. External cath, maury clear urine. Patient wanted Trazadone. Called RE[facility] Jewell since medication was on hold. Recheck EKG, QTC no longer prolonge, and restarted Trazadone. Voices no questions, needs, or concerns at this time. In bed with call light within reach. Bed alarm on.
[2021-10-26 00:38] VITALS: BP 157/83; PULSE 78; TEMP 97.7
[2021-10-26 04:24] VITALS: BP 132/61; PULSE 75; TEMP 97.8
--- NOTE | 2021-10-26 05:41 | NUR ---
Continues on IV ABX per orders. Has denied pain and discomfort this shift. On oxygen at 4 L/min via NC. Voices no questions, needs, or concerns at this time. In bed with call light within reach. Bed alarm on.
--- NOTE | 2021-10-26 07:15 | NUR ---
PATIENT RECEIVED IN A FAIR CONDITION, vss LOOKS DROWSY, ON O2 3LTS SATS 97, PT HAS A A COLOSTOMY BAG INTACT, STATES THAT HE WANTS HIS MORNING PILLS WITH ORANGE JUICE, HAS A SLURRED SPEECH.
[2021-10-26 07:35] VITALS: BP 104/52; PULSE 79; TEMP 98
--- NOTE | 2021-10-26 09:26 | NUR ---
Service Desk Agent confirmed patient ready for discharge with Dr. Rodrigues and Daniella RN; patient t discharge today and return back to [facility]. The facility has requested a Covid test and LTC orders prior to return. Service Desk Agent contacted [facility] and spoke to Georgina, who confirms plan of care and is able to coordinate transportation once requested documentation is sent. Daniella CONNELL updated, requests patient transportation coordinated for 12:00 or shortly thereafter. Patient test will be completed within the hour and discharge/LTC orders in process now. Social Work contacted Georgina to notify, confirms plan. Georgina requests contact when patient will be ready for transportation; Nghia CONNELL updated on 12:00 discharge time and will call back to confirm. *Discharge plan: Return to [facility] with transport at or around noon*
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
[2021-10-26] MEDS ORDERED: AMOXICILLIN 8751 TAB PO (09:56)
[2021-10-26] MEDS ORDERED: DOXYCYCLINE 10100 MG PO (09:57)
--- NOTE | 2021-10-26 11:27 | NUR ---
Kids Club Attendant confirms patient discharge paperwork and covid test completed. Kids Club Attendant faxed clinicals to [facility] and contacted Nghia CONNELL at [facility] to update. Nghia CONNELL informs patient transport is coordinated for 12:00-13:00. Daniella CONNELL updated. *Discharge plan: Return to [facility] with transport coordinated at 13:00*
[2021-10-26 11:41] VITALS: BP 144/76; PULSE 86; TEMP 98.2
== END 2021-10-26 13:55 | DRG 871 ==
LOC: COL.ER 04:28 → MEDICAL 06:09
PROVIDERS: Emergency Medicine; Physician Assistant; ADMIT Student in an Organized Health Care Education/Training Program
PROC: 5A0945A Assistance with Respiratory Ventilation, 24-96 Consecutive Hours, High Flow/Velocity Cannula (ICD-10-PCS; principal; 2021-10-23)
DX: A41.9 Sepsis, unspecified organism (principal); J96.01 Acute respiratory failure with hypoxia; J18.9 Pneumonia, unspecified organism; N39.0 Urinary tract infection, site not specified; J44.0 Chronic obstructive pulmonary disease with (acute) lower respiratory infection; E11.9 Type 2 diabetes mellitus without complications; I10 Essential (primary) hypertension; D50.9 Iron deficiency anemia, unspecified; F32.A Depression, unspecified; G89.29 Other chronic pain; M54.9 Dorsalgia, unspecified; F22 Delusional disorders; E83.42 Hypomagnesemia; L89.159 Pressure ulcer of sacral region, unspecified stage; F41.9 Anxiety disorder, unspecified; G47.00 Insomnia, unspecified; N40.0 Benign prostatic hyperplasia without lower urinary tract symptoms; B96.1 Klebsiella pneumoniae [K. pneumoniae] as the cause of diseases classified elsewhere; Z20.822 Contact with and (suspected) exposure to COVID-19; Z87.820 Personal history of traumatic brain injury
CPT/HCPCS: 99223-AI; 99233-AI; J0692; J1650; J1956; J3475; J3486; J7030

== ENCOUNTER 2022-01-10 08:35 | Day surgery (SDC) | payer MEDICARE, BC ==
[~2022-01-10] VITALS: Ht 182.9 cm; Wt 92.3 kg
[~2022-01-10 08:35] MED LIST changes: +AMOXICILLIN 8751 TAB PO
[2022-01-10 11:05] VITALS: BP 112/62; PULSE 66; TEMP 98.1
[2022-01-10 11:35] VITALS: BP 118/63; PULSE 63; TEMP 98
[2022-01-10 11:50] VITALS: BP 127/77; PULSE 70
[2022-01-10 12:05] VITALS: BP 140/68; PULSE 60
== END 2022-01-10 12:25 ==
LOC: SDCO 08:35
DX: K22.70 Barrett's esophagus without dysplasia (principal); K22.89 Other specified disease of esophagus; E11.9 Type 2 diabetes mellitus without complications; Z79.899 Other long term (current) drug therapy
CPT/HCPCS: J2704; J7120

== ENCOUNTER 2022-02-20 11:27 | Emergency (ER) | payer MEDICARE, BC ==
[~2022-02-20] VITALS: Ht 160 cm; Wt 92.7 kg
[2022-02-20 11:29] VITALS: TEMP 97.6
[2022-02-20 13:37] LABS: BASO % 0.5 % (0.0-2.0); EOS # 0.2 K/mm3 (0.0-0.7); EOS % 2.1 % (0.0-4.0); GRAN # 5.5 K/mm3 (1.4-6.5); HEMOGLOBIN 14.6 g/dl (13.5-18.0); LYMPH % 24.8 % (20.0-51.0); MEAN CELL VOLUME 87 fl (80.0-100.0); MEAN CORPUSCULAR HEMOGLOBIN 28 pg (27-31); MEAN CORPUSCULAR HGB CONC 32 g/dl (33.0-37.0); MEAN PLATELET VOLUME 9.6 fl (7.4-10.4); MONO # 0.5 K/mm3 (0.1-0.6); MONO % 5.5 % (1.7-9.3); PLATELET COUNT 218 K/mm3 (130-400); REDCELL DISTRIBUTION WIDTH-CV 12.6 % (11.5-14.5)
[2022-02-20 13:58] LABS: ANION GAP 7 mmol/L (7-16); BLOOD UREA NITROGEN 7 mg/dL (8-26); CALCIUM 8.6 mg/dL (8.4-10.2); CARBON DIOXIDE 34 mmol/L (23-31); CHLORIDE 102 mmol/L (98-107); CREATININE, serum 0.75 mg/dL (0.72-1.25); GLUCOSE 100 mg/dL (70-99); SODIUM 143 mmol/L (136-145)
[2022-02-20 14:05] LABS: TROPONIN-I < 0.010 ng/mL (0.00-0.033)
[2022-02-20 14:32] VITALS: BP 151/88; PULSE 59
== END 2022-02-20 14:39 | disposition home or self-care (01) ==
LOC: COL.ER 11:27
PROVIDERS: Emergency Medicine
DX: Z87.01 Personal history of pneumonia (recurrent) (principal); Z87.820 Personal history of traumatic brain injury

== ENCOUNTER 2022-03-15 19:32 | Inpatient (IN) | payer MEDICARE, BC ==
[~2022-03-15] VITALS: Ht 182.9 cm; Wt 90.8 kg
[2022-03-15 20:05] LABS: HEMATOCRIT 48.6 % (42.0-52.0); HEMOGLOBIN 16.4 g/dl (13.5-18.0); MEAN CELL VOLUME 85 fl (80.0-100.0); MEAN CORPUSCULAR HEMOGLOBIN 29 pg (27-31); MEAN CORPUSCULAR HGB CONC 34 g/dl (33.0-37.0); MEAN PLATELET VOLUME 10.3 fl (7.4-10.4); PLATELET COUNT 237 K/mm3 (130-400); RED BLOOD COUNT 5.71 M/mm3 (4.20-5.60); REDCELL DISTRIBUTION WIDTH-CV 12.9 % (11.5-14.5)
[2022-03-15 20:06] LABS: COLLECTION METHOD CLEAN CATCH
[2022-03-15 20:12] LABS: URINE APPEARANCE Clear (CLEAR/HAZY); URINE BLOOD Negative (NEGATIVE); URINE COLOR Yellow (YELLOW); URINE GLUCOSE Negative (NEGATIVE); URINE KETONE TRACE (NEGATIVE); URINE NITRATE Negative (NEGATIVE); URINE PROTEIN(semi-quant) Negative (NEGATIVE); URINE UROBILINOGEN 0.2 E.U/dL (0.2-1.0)
[2022-03-15 20:13] LABS: MUCOUS Present (NOT PRESENT); SQUAMOUS EPITHELIAL 0-2 /hpf (0-10); URINE BACTERIA Rare /hpf (NONE SEEN)
[2022-03-15 20:16] LABS: ALBUMIN 3.2 gm/dL (3.4-4.8); BILIRUBIN,TOTAL 0.4 mg/dL (0.2-1.2); C-REACTIVE PROTEIN 5.43 mg/dL (0.00-0.50); CALCIUM 8.8 mg/dL (8.4-10.2); CREATININE, serum 0.95 mg/dL (0.72-1.25); TOTAL PROTEIN 7.9 gm/dL (6.2-8.1)
[2022-03-15] MEDS ORDERED: LIORESAL 1010 MG/TAB PO (21:46)
[2022-03-15] MEDS ORDERED: LINZESS145CAP PO (21:48)
[2022-03-15 23:12] VITALS: BP 147/69; PULSE 72; TEMP 97.8
[2022-03-16] MEDS ORDERED: GENTLE LAXATIVE10 MG RC (00:42)
[2022-03-16] MEDS ORDERED: ATROVENT I0.2 MG/1 M IH (00:47)
[2022-03-16] MEDS ORDERED: ENULOSE10 GM/151 PO (00:51)
[2022-03-16] MEDS ORDERED: MILK OF MA400 MG/52 PO (00:53)
[2022-03-16] MEDS ORDERED: MYLANTA 150 ML150 M1 PO (00:54)
[2022-03-16] MEDS ORDERED: PREVIDENT5000PLUS DT (00:56)
[2022-03-16] MEDS ORDERED: REFRESH OPTIVE10 M2 OP (00:58)
[2022-03-16] MEDS ORDERED: BICARSIM FORTE1 TA1 PO (01:00)
[2022-03-16] MEDS ORDERED: TYLENOL 325MG325 MG PO (01:01)
[2022-03-16] MEDS ORDERED: ZOCOR 20MG20 MG PO (01:02)
--- NOTE | 2022-03-16 01:32 | NUR ---
Patient arrived to medical unit from ER at approximately 2245. Alert and oriented. Denies pain and discomfort. Assessment complete. IV site to left hand infiltrated. This nurse unable to obain IV access. metal fabricating supervisor notified, and was able to get new IV site to right forearm. Started IV fluids and ABX at 0115. Called pharmacy to see if Zosyn needed to be retimed since initial dose was given at 0115, and next dose is scheduled for 0600. Stated that it was ok and no changes needed to be made. Patient denies SOB and dyspnea. On room air. LS CTA. HRR. BSAx4. Colostmy wafer and bag changed upon getting to medical floor from ER. External male catheter applied per orders. Patient has redness/excoriation/open areas to bottom. Mepilex applied to bottom. No edema. Dad updated in person on plan, and given phone numbers to call if he has any questions. Patient in bed with call light within reach at this time. High fall risk precautions in place. Bed alarm on.
[2022-03-16 04:27] VITALS: BP 136/54; PULSE 64; TEMP 97.6
--- NOTE | 2022-03-16 05:54 | NUR ---
Patient has denied having pain and discomfort this shift. Voices no questions, needs, or concerns at this time. In bed with call light within reach. High fall risk precautions in place. Continues on IV fluids and ABX per orders.
[2022-03-16 06:54] LABS: BASO % 0.4 % (0.0-2.0); EOS # 0.1 K/mm3 (0.0-0.7); EOS % 1.5 % (0.0-4.0); GRAN # 6.3 K/mm3 (1.4-6.5); GRAN % 65.5 % (42.2-75.2); HEMATOCRIT 41.4 % (42.0-52.0); LYMPH # 2.5 K/mm3 (1.2-3.4); LYMPH % 26.1 % (20.0-51.0); MEAN CORPUSCULAR HGB CONC 32 g/dl (33.0-37.0); MONO # 0.6 K/mm3 (0.1-0.6); MONO % 6.2 % (1.7-9.3); PLATELET COUNT 214 K/mm3 (130-400); RED BLOOD COUNT 4.57 M/mm3 (4.20-5.60); REDCELL DISTRIBUTION WIDTH-CV 13.1 % (11.5-14.5)
[2022-03-16 07:01] LABS: HEMOGLOBIN 13.1 g/dl (13.5-18.0); MEAN CELL VOLUME 91 fl (80.0-100.0); MEAN CORPUSCULAR HEMOGLOBIN 29 pg (27-31)
[2022-03-16 07:06] LABS: CALCIUM 8.2 mg/dL (8.4-10.2); CREATININE, serum 0.8 mg/dL (0.72-1.25); POTASSIUM 3.7 mmol/L (3.5-4.5)
[2022-03-16 07:45] VITALS: BP 122/60; PULSE 70; TEMP 97.5
--- NOTE | 2022-03-16 08:00 | NUR ---
Patient sitting up in bed with TV on. Dad at the bedside. A&Ox4. VSS. IV CDI, fluids infusing. Denies pain and discomfort. Colostomy site intact. External catheter intact. No further needs expressed. Call light within reach
[2022-03-16 11:08] VITALS: BP 121/64; PULSE 69; TEMP 97.5
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
[2022-03-16 16:04] VITALS: BP 125/65; PULSE 70; TEMP 97.8
--- NOTE | 2022-03-16 17:54 | NUR ---
Patient sitting up in bed, just finished eating dinner. Patients dad helped set up the dinner tray and patient able to feed self. A&Ox3. VSS. IV CDI, fluids infusing. Colostomy intact and external catheter intact. Patient positioned for comfort. Denies pain and discomfort. Dad at the bedside. No further needs expressed. Call light within reach
[2022-03-16 19:12] VITALS: BP 135/73; PULSE 77; TEMP 97.6
[2022-03-17 00:41] VITALS: BP 116/63; PULSE 71; TEMP 98.4
[2022-03-17 03:38] VITALS: BP 140/76; PULSE 73; TEMP 98.4
--- NOTE | 2022-03-17 04:45 | NUR ---
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 PT RESTING IN BED WATCHING TV. PT REQUESTED HELP TO CALL HIS FATHER. PT ABLE TO TALK WITH HIS FATHER AND SAY GOOD NIGHT TO HIM. PT DENIED GENERAL PAIN, CHEST PAIN, PALPITATIONS, N,V,D, SOB OR DIZZINESS. PT GIVEN PIPERACILLIN IV PER ORDERS WITH NO ALLERGIC REACTION. PT EXPRESSED NO ADDITIONAL NEEDS AT THIS TIME. CALL LIGHT NANY CARABALLO.
[2022-03-17 07:13] VITALS: BP 128/64; PULSE 66; TEMP 97.9
--- NOTE | 2022-03-17 08:00 | NUR ---
Patient sitting up in bed watching TV. A&Ox3. VSS. IV CDI, fluids infusing. Denies pain and discomfort. Patients dad will be visiting soon and assist with daily care. Patient has pain pump, intact, no concerns. Call light within reach
--- NOTE | 2022-03-17 10:44 | NUR ---
Initial visit; Patient and his Father thanked Foreign Service Officer for looking in on him and wishing him well and God's blessings.
--- NOTE | 2022-03-17 10:54 | NUR ---
House Servant faxed clinical updates to Dilcia at [facility].
[2022-03-17 11:15] VITALS: BP 125/64; PULSE 64; TEMP 98.4
[2022-03-17 16:07] VITALS: BP 126/69; PULSE 66; TEMP 98.6
--- NOTE | 2022-03-17 18:56 | NUR ---
Patient had an uneventful day. A&Ox3. VSS. IV CDI, fluids infusing. Colostomy intact. External catheter intact. Bed bath provided today. Dad at the bedside throughout the shift to assist with daily cares. Denies pain and discomfort, pain pump in place. No further needs expressed. Call light within reach
[2022-03-17 20:44] VITALS: BP 127/61; PULSE 65; TEMP 98.5
[2022-03-18 00:50] VITALS: BP 133/71; PULSE 66; TEMP 97.7
[2022-03-18 04:59] VITALS: BP 141/73; PULSE 65; TEMP 97.8
[2022-03-18 06:29] LABS: BASO % 0.4 % (0.0-2.0); EOS # 0.2 K/mm3 (0.0-0.7); EOS % 2.5 % (0.0-4.0); GRAN # 6.8 K/mm3 (1.4-6.5); GRAN % 69.6 % (42.2-75.2); HEMATOCRIT 42.3 % (42.0-52.0); HEMOGLOBIN 13.3 g/dl (13.5-18.0); LYMPH # 2.2 K/mm3 (1.2-3.4); LYMPH % 22.1 % (20.0-51.0); MEAN CELL VOLUME 90 fl (80.0-100.0); MEAN CORPUSCULAR HEMOGLOBIN 28 pg (27-31); MEAN CORPUSCULAR HGB CONC 31 g/dl (33.0-37.0); MEAN PLATELET VOLUME 10.2 fl (7.4-10.4); MONO # 0.5 K/mm3 (0.1-0.6); PLATELET COUNT 228 K/mm3 (130-400); RED BLOOD COUNT 4.71 M/mm3 (4.20-5.60); REDCELL DISTRIBUTION WIDTH-CV 13.3 % (11.5-14.5)
[2022-03-18 06:44] LABS: CALCIUM 8.6 mg/dL (8.4-10.2); CREATININE, serum 0.71 mg/dL (0.72-1.25); POTASSIUM 3.8 mmol/L (3.5-4.5)
[2022-03-18 07:22] VITALS: BP 139/67; PULSE 55; TEMP 97.8
--- NOTE | 2022-03-18 08:00 | NUR ---
Patient is resting in bed, father at the bedside, getting NS at 75 ml/hr. Colostomy bag empty. External catheter in place, yellow clear output. Assessment completed, no other needs at this time. Call light within reach.
[2022-03-18] MEDS ORDERED: CEFTIN500 MG PO (09:09)
--- NOTE | 2022-03-18 12:00 | NUR ---
Patient was picked up by [facility] commissary representative. Documentation was taken by father to [facility]. IV access and external cath were discontinued.
--- NOTE | 2022-03-18 13:04 | NUR ---
Patient to discharge back to [facility] today. SW contacted Dilcia at [facility] and faxed clinical updates and discharge orders. Transport time set for 1130. SW contacted patient's father, Santos and provided transport time. Discharge Plan: [facility]
== END 2022-03-18 12:00 | DRG 698 ==
LOC: COL.ER 19:32 → MEDICAL 20:50
PROVIDERS: Nurse Practitioner; Physician Assistant; ADMIT Student in an Organized Health Care Education/Training Program
DX: T83.518A Infection and inflammatory reaction due to other urinary catheter, initial encounter (principal); A41.9 Sepsis, unspecified organism; J69.0 Pneumonitis due to inhalation of food and vomit; N39.0 Urinary tract infection, site not specified; F32.A Depression, unspecified; D50.9 Iron deficiency anemia, unspecified; E11.9 Type 2 diabetes mellitus without complications; I10 Essential (primary) hypertension; K27.7 Chronic peptic ulcer, site unspecified, without hemorrhage or perforation; G89.29 Other chronic pain; M54.9 Dorsalgia, unspecified; F41.9 Anxiety disorder, unspecified; G47.00 Insomnia, unspecified; F22 Delusional disorders; N40.0 Benign prostatic hyperplasia without lower urinary tract symptoms; Y84.6 Urinary catheterization as the cause of abnormal reaction of the patient, or of later complication, without mention of misadventure at the time of the procedure; B96.1 Klebsiella pneumoniae [K. pneumoniae] as the cause of diseases classified elsewhere; Z87.19 Personal history of other diseases of the digestive system; Z79.52 Long term (current) use of systemic steroids; Z88.1 Allergy status to other antibiotic agents; Z88.8 Allergy status to other drugs, medicaments and biological substances; Z86.711 Personal history of pulmonary embolism; Z87.820 Personal history of traumatic brain injury; Z23 Encounter for immunization; Y92.89 Other specified places as the place of occurrence of the external cause
CPT/HCPCS: J0696; J2543; J7030

== ENCOUNTER 2023-09-26 10:47 | Inpatient (IN) | payer MEDICARE, OTHER ==
[~2023-09-26] VITALS: Ht 182.9 cm; Wt 87.3 kg
[~2023-09-26 10:47] MED LIST changes: +BICARSIM FORTE1 TA1 PO; +CEFTIN500 MG PO; +CIPRO 500MG TA500 MG PO; +CUBICIN 500MG500 MG IV; +ELIQUIS 5MG PO; +IMODIUM 2MG CAPS2 MG PO; +INTRATHECAL PUMP; +KLONOPIN 1MG1 MG PO; +LACTULOSE10 GM/153 PO; +LIPITOR 40MG TA40 MG PO; +MILK OF MA400 MG/52 PO; +MYLANTA 150 ML150 M1 PO; +REFRESH OPTIVE10 M2 OP; +SENNA-S 50 MG-81 TAB PO; +ZOSYN 4 GM-0.51 PD1 IV; +[UNRECOGNIZED DRUG - OTHER] PO
[2023-09-26] MEDS ORDERED: LR 1,000 ML IV ONE (11:00)
[2023-09-26 11:40] LABS: INR 1.5 (0.8-3.0)
[2023-09-26 11:45] LABS: HEMATOCRIT 44.8 % (42.0-52.0); HEMOGLOBIN 14.6 g/dl (13.5-18.0); MEAN CELL VOLUME 87 fl (80.0-100.0); MEAN CORPUSCULAR HEMOGLOBIN 28 pg (27-31); MEAN CORPUSCULAR HGB CONC 33 g/dl (33.0-37.0); PLATELET COUNT 187 K/mm3 (130-400); RED BLOOD COUNT 5.15 M/mm3 (4.20-5.60); REDCELL DISTRIBUTION WIDTH-CV 13.2 % (11.5-14.5)
[2023-09-26 11:52] LABS: ALANINE AMINOTRANSFERASE 20 U/L (0-55); ALBUMIN 2.8 g/dL (3.4-4.8); ALKALINE PHOSPHATASE 90 U/L (40-150); ANION GAP 13 mmol/L (7-16); AST,SGOT 25 U/L (5-34); BILIRUBIN,TOTAL 0.4 mg/dL (0.2-1.2); BLOOD UREA NITROGEN 12 mg/dL (8-26); C-REACTIVE PROTEIN 3.08 mg/dL (0.00-0.50); CALCIUM 8.6 mg/dL (8.4-10.2); CHLORIDE 104 mEq/L (98-107); CREATININE, serum 0.88 mg/dL (0.72-1.25); GLUCOSE 143 mg/dL (70-99); POTASSIUM 4.4 mEq/L (3.5-4.5); SODIUM 142 mEq/L (136-145); TOTAL PROTEIN 7.2 g/dl (6.2-8.1)
[2023-09-26 11:54] LABS: TROPONIN-I < 0.010 ng/mL (0.00-0.033)
[2023-09-26] MEDS ORDERED: cefTRIAXone 1 G in Water For Injection,Sterile 10 ML IV ONE (12:15)
[2023-09-26] MEDS ORDERED: NS 1,000 ML IV ONE (12:15)
[2023-09-26 12:16] LABS: BAND 11 % (0-10); LYMPHOCYTE 5 % (20.0-51.0); NEUTROPHILS 80 % (42.0-75.2)
[2023-09-26 12:17] LABS: PLATELET ESTIMATE NORMAL (NORMAL)
[2023-09-26 12:57] LABS: COLLECTION METHOD CATHETER
[2023-09-26 13:08] LABS: URINE APPEARANCE CLOUDY (CLEAR/HAZY); URINE BLOOD TRACE (NEGATIVE); URINE COLOR Dark Yellow (YELLOW); URINE GLUCOSE NEGATIVE (NEGATIVE); URINE KETONE TRACE (NEGATIVE); URINE NITRATE POSITIVE (NEGATIVE); URINE PROTEIN(semi-quant) NEGATIVE (NEGATIVE)
[2023-09-26 13:30] LABS: MUCOUS PRESENT (NOT PRESENT); SQUAMOUS EPITHELIAL 0-2 /hpf (0-10); URINE BACTERIA MANY /hpf (NONE SEEN); URINE RBC 0-2 /hpf (0-2)
[2023-09-26 14:57] VITALS: BP 124/77; PULSE 93; TEMP 97.4
--- NOTE | 2023-09-26 15:00 | NUR ---
PATIENT ADMITTED TO MEDICAL UNIT AT THIS TIME. PATIENT ORIENTED TO ROOM. PLACED ON FALL PRECAUTIONS, BED ALARM ON, CALL LIGHT WITHIN REACH. MED REC REVIEWED. ADMISSION INTAKE UPDATED TO BEST OF MY ABILITY. ADMISSION ASSESSMENT COMPLETED. PATIENT STATES HE HAS HAD A BOWEL MOVEMENT IN A MONTH AND EDORSES ABDOMINAL PAIN, DR. JIMENEZ NOTIFIED. PATIENT HAS A STAGE 1 PRESSURE SORE TO THE MAJORITY OF HIS BOTTOM WITH SOME SHEERING. THERE IS A SMALL STAGE TWO PRESSURE SORE AND A DEEP TISSUE INJURY TO THE AREA WELL. BARRIER CREAM APPLIED AND A NEW MEPILEX APPLIED. GAY CATHETER IN PLACE DRAINING CLEAR YELLOW URINE. WILL CONTINUE TO MONITOR.
[2023-09-26 15:02] VITALS: BP_SYST 124
[2023-09-26] MEDS ORDERED: Albuterol/Ipratropium 3 MG-0.5 MG/3 ML Neb Soln IH PRN (15:45)
[2023-09-26] MEDS ORDERED: Acetaminophen 325 MG TAB PO PRN (15:45)
[2023-09-26] MEDS ORDERED: Ondansetron 4 MG/2 ML VIAL IV PRN (15:45)
[2023-09-26] MEDS ORDERED: 1/2 NS 1,000 ML IV SCH (15:45)
[2023-09-26 16:07] VITALS: BP_SYST 124
[2023-09-26] MEDS ORDERED: Azithromycin 250 MG TAB PO SCH (16:15)
[2023-09-26] MEDS ORDERED: ELIQUIS 5MG PO (16:16)
[2023-09-26] MEDS ORDERED: Sennosides/Docusate 8.6-50 MG TAB PO SCH (16:25)
[2023-09-26] MEDS ORDERED: Magnes Hydrox (MOM) 80 MG/ML 30 ML CUP PO PRN (16:30)
[2023-09-26] MEDS ORDERED: Mag/Al Hydrox/Simeth Susp 30 ML CUP PO PRN (16:30)
[2023-09-26] MEDS ORDERED: Famotidine 20 MG TAB PO PRN (16:30)
[2023-09-26] MEDS ORDERED: Baclofen 10 MG TAB PO PRN (16:30)
[2023-09-26] MEDS ORDERED: Carboxymethylcellulose PF Ophth 0.4 ML DROPPERETTE OP PRN (16:30)
[2023-09-26] MEDS ORDERED: Albuterol/Ipratropium 3 MG-0.5 MG/3 ML Neb Soln IH SCH (19:00)
[2023-09-26 19:24] VITALS: BP 122/75; PULSE 79; TEMP 98.4
[2023-09-26 19:55] VITALS: BP_SYST 122
[2023-09-26] MEDS ORDERED: Polyethylene Glycol 3350 17 GM PDS PO SCH (21:00)
[2023-09-26] MEDS ORDERED: Atorvastatin 10 MG TAB PO SCH (21:00)
[2023-09-26] MEDS ORDERED: traZODone 100 MG TAB PO SCH (21:00)
[2023-09-26] MEDS ORDERED: Simvastatin 20 MG **** subs to Atorvastatin 10 MG PO SCH (21:00)
[2023-09-26] MEDS ORDERED: Apixaban 5 MG TAB PO SCH (21:00)
[2023-09-26] MEDS ORDERED: Ascorbic Acid 500 MG TAB PO SCH (21:00)
[2023-09-26] MEDS ORDERED: Ziprasidone 20 MG CAP PO SCH (21:00)
[2023-09-26] MEDS ORDERED: Docusate Sodium 100 MG CAP PO SCH (21:00)
[2023-09-27] VITALS (13 sets, daily range): BP systolic 126–165; BP diastolic 69–82; PULSE 71–82; TEMP 97.8–98.5
--- NOTE | 2023-09-27 05:30 | NUR ---
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 PT COMPLAINED OF NO BOWEL MOVEMENT FOR A MONTH AND WANTED AN X-RAY DONE. PT HAS BOWEL SOUNDS IN ALL FOUR QUADRANTS. PT GIVEN STOOL SOFTNERS. PT HAD A LARGE BM. PT STILL WANTS AN X-RAY. INFORMATION PASSED ON TO DAYSHIFT RN. PT DENIED ALL OTHER DISCOMFORTS. PT TURNED EVERY 2 HOURS AND CHECKED ON OFTEN. FALL PRECAUTIONS IN PLACE. BED ALARM ON. CALL LIGHT WITHIN REACH.
[2023-09-27 06:54] LABS: BASO % 0.3 % (0.0-2.0); EOS # 0.2 K/mm3 (0.0-0.7); EOS % 1.5 % (0.0-4.0); GRAN % 81.1 % (42.2-75.2); LYMPH # 1.5 K/mm3 (1.2-3.4); MEAN CELL VOLUME 86 fl (80.0-100.0); MEAN CORPUSCULAR HEMOGLOBIN 28 pg (27-31); MEAN CORPUSCULAR HGB CONC 32 g/dl (33.0-37.0); MEAN PLATELET VOLUME 10.8 fl (7.4-10.4); MONO # 0.6 K/mm3 (0.1-0.6); MONO % 4.7 % (1.7-9.3); PLATELET COUNT 131 K/mm3 (130-400); RED BLOOD COUNT 4.41 M/mm3 (4.20-5.60); REDCELL DISTRIBUTION WIDTH-CV 13.4 % (11.5-14.5)
[2023-09-27 07:14] LABS: CALCIUM 8.3 mg/dL (8.4-10.2); CREATININE, serum 0.64 mg/dL (0.72-1.25); MAGNESIUM 1.5 mg/dL (1.6-2.6); POTASSIUM 3.6 mEq/L (3.5-4.5)
[2023-09-27 07:21] LABS: HEMATOCRIT 38.1 % (42.0-52.0); HEMOGLOBIN 12.3 g/dl (13.5-18.0)
--- NOTE | 2023-09-27 08:56 | NUR ---
Received consult for unsure wt loss. Reviewe previous admission wt 07/05/23 was 82 kg, 08/01/23 was 88 kg, current wt 87.3. Wt stable range. Will monitor progress and evaluate if needed in 5-7 days.
[2023-09-27] MEDS ORDERED: Multivitamin TAB PO SCH (09:00)
[2023-09-27] MEDS ORDERED: cefTRIAXone 1 G in Water For Injection,Sterile 10 ML IV SCH (09:00)
[2023-09-27] MEDS ORDERED: Cholecalciferol (Vit D3) 5000 Units Capsule PO SCH (09:00)
--- NOTE | 2023-09-27 10:26 | NUR ---
Patient alert to self, situation, and location. Shift assessment complete. Denies pain this morning. Lung sounds noted to have crackles in bases. Minimal coughing noted. Peacock intact and draining yellow/clear urine. Medications crushed and administered with pudding and thickened water, patient tolerated well sitting up 90 degrees. Thickened water provided without straw due to aspiration risks. NS infusing per orders, rocephin administered. Call light within reach and bed alarm on, all needs met at this time.
--- NOTE | 2023-09-27 16:12 | NUR ---
SW completed intake for patient which confirms patient resides in [facility] and resides at [facility]. DPOA/HC is sister Rebecca Quintero [phone] and brother Ren Chambers [phone]. Patient obtains assistance from staff with ADLS at facility. Discharge plan for patient will be to return back to [facility]. SEAMUS will continue to follow. Discharge Plan: back to [facility]
[2023-09-28 00:15] VITALS: BP_SYST 139
[2023-09-28 06:31] VITALS: BP 147/80; PULSE 63; TEMP 98
[2023-09-28 06:35] VITALS: BP_SYST 147
[2023-09-28 07:05] LABS: BASO % 0.4 % (0.0-2.0); EOS # 0.2 K/mm3 (0.0-0.7); EOS % 2.6 % (0.0-4.0); GRAN # 5.6 K/mm3 (1.4-6.5); GRAN % 70.8 % (42.2-75.2); HEMATOCRIT 39.5 % (42.0-52.0); HEMOGLOBIN 12.9 g/dl (13.5-18.0); LYMPH # 1.6 K/mm3 (1.2-3.4); LYMPH % 20.2 % (20.0-51.0); MEAN CELL VOLUME 86 fl (80.0-100.0); MEAN CORPUSCULAR HEMOGLOBIN 28 pg (27-31); MEAN CORPUSCULAR HGB CONC 33 g/dl (33.0-37.0); MEAN PLATELET VOLUME 10.4 fl (7.4-10.4); MONO # 0.5 K/mm3 (0.1-0.6); MONO % 5.7 % (1.7-9.3); PLATELET COUNT 164 K/mm3 (130-400); REDCELL DISTRIBUTION WIDTH-CV 13.3 % (11.5-14.5)
[2023-09-28 07:41] VITALS: BP 154/87; PULSE 76; TEMP 97.6
[2023-09-28] MEDS ORDERED: OMNICEF 300MG300 MG PO (08:44)
[2023-09-28 08:55] VITALS: BP_SYST 154
--- NOTE | 2023-09-28 09:42 | NUR ---
PATIENT SITTING UP IN BED UPON ENTERING ROOM. MORNING MEDICATIONS ADMINISTERED. SHIFT ASSESSMENT COMPLETED. IVF INFUSING. GAY DRAINING CLEAR YELLOW URINE. WILL CONTINUE TO MONITOR.
--- NOTE | 2023-09-28 10:01 | NUR ---
Initial visit; Patient thanked Director Hr Communications for coming in and praying for him. He was receptive to Director Hr Communications coming by again.
--- NOTE | 2023-09-28 10:54 | NUR ---
REPORT CALLED TO RN AT [facility]. ALL QUESTIONS ANSWERED. GAY CATHETER REMOVED, PATIENT WALTER URINATING. PATIENT ESCORTED OFF OF UNIT BY RAIL GRINDER.
--- NOTE | 2023-09-28 13:32 | NUR ---
Braille Typist contacted Dilcia at [facility] and faxed clinical updates. Patient is ready for discharge today and [facility] can accept. SEAMUS set transport time for 1030 and notified patient's sister, Rebecca of discharge. SEAMUS faxed discharge orders for LTC to Dilcia at [facility]. Discharge Plan; [facility] LTC
== END 2023-09-28 10:55 | DRG 871 ==
LOC: COL.ER 10:47 → MEDICAL 13:10
PROVIDERS: Nurse Practitioner; ADMIT Internal Medicine
DX: A41.9 Sepsis, unspecified organism (principal); J69.0 Pneumonitis due to inhalation of food and vomit; R53.2 Functional quadriplegia; N39.0 Urinary tract infection, site not specified; K59.00 Constipation, unspecified; R47.1 Dysarthria and anarthria; Z20.822 Contact with and (suspected) exposure to COVID-19; E11.9 Type 2 diabetes mellitus without complications; Z87.820 Personal history of traumatic brain injury; Z88.1 Allergy status to other antibiotic agents; Z86.711 Personal history of pulmonary embolism; Z79.01 Long term (current) use of anticoagulants; Z79.899 Other long term (current) drug therapy; Z23 Encounter for immunization
CPT/HCPCS: A4314; J0696; J7030; J7120

== ENCOUNTER 2023-12-04 23:56 | Inpatient (IN) | payer MEDICARE, OTHER ==
[~2023-12-04] VITALS: Ht 182.9 cm; Wt 83.3 kg
[2023-12-05 00:53] LABS: BASO # 0.1 K/mm3 (0.0-0.2); BASO % 0.5 % (0.0-2.0); EOS # 0.1 K/mm3 (0.0-0.7); EOS % 0.9 % (0.0-4.0); GRAN # 7.5 K/mm3 (1.4-6.5); GRAN % 73.4 % (42.2-75.2); HEMATOCRIT 51.2 % (42.0-52.0); HEMOGLOBIN 15.9 g/dl (13.5-18.0); LYMPH # 2.3 K/mm3 (1.2-3.4); LYMPH % 22.6 % (20.0-51.0); MEAN CELL VOLUME 88 fl (80.0-100.0); MEAN CORPUSCULAR HEMOGLOBIN 27 pg (27-31); MEAN CORPUSCULAR HGB CONC 31 g/dl (33.0-37.0); MEAN PLATELET VOLUME 10.4 fl (7.4-10.4); MONO # 0.3 K/mm3 (0.1-0.6); MONO % 2.4 % (1.7-9.3); PLATELET COUNT 177 K/mm3 (130-400); RED BLOOD COUNT 5.81 M/mm3 (4.20-5.60); REDCELL DISTRIBUTION WIDTH-CV 13.9 % (11.5-14.5)
[2023-12-05 00:55] LABS: ERYTHROCYTE SEDIMENTATION RATE 9 mm/hr (0-30)
[2023-12-05 01:13] LABS: PH 6.5 (5.0-8.5); URINE APPEARANCE CLEAR (CLEAR/HAZY); URINE BLOOD NEGATIVE (NEGATIVE); URINE COLOR Dark Yellow (YELLOW); URINE GLUCOSE NEGATIVE (NEGATIVE); URINE KETONE TRACE (NEGATIVE); URINE NITRATE NEGATIVE (NEGATIVE); URINE PROTEIN(semi-quant) TRACE (NEGATIVE)
[2023-12-05 01:15] LABS: ALANINE AMINOTRANSFERASE 48 U/L (0-55); ALBUMIN 3.1 g/dL (3.4-4.8); ALKALINE PHOSPHATASE 118 U/L (40-150); ANION GAP 10 mmol/L (7-16); AST,SGOT 31 U/L (5-34); BILIRUBIN,TOTAL 0.5 mg/dL (0.2-1.2); BLOOD UREA NITROGEN 15 mg/dL (8-26); C-REACTIVE PROTEIN 6.09 mg/dL (0.00-0.50); CALCIUM 8.6 mg/dL (8.4-10.2); CHLORIDE 102 mEq/L (98-107); CREATININE, serum 1.04 mg/dL (0.72-1.25); GLUCOSE 140 mg/dL (70-99); LIPASE 10 U/L (8-78); MAGNESIUM 1.9 mg/dL (1.6-2.6); POTASSIUM 3.2 mEq/L (3.5-4.5); SODIUM 143 mEq/L (136-145); TOTAL PROTEIN 8.1 g/dl (6.2-8.1)
[2023-12-05 01:23] LABS: TROPONIN-I < 0.010 ng/mL (0.00-0.033)
[2023-12-05] MEDS ORDERED: Cefepime 2 G in Water For Injection,Sterile 20 ML IV ONE (01:30)
[2023-12-05 01:32] LABS: MUCOUS PRESENT (NOT PRESENT); URINE BACTERIA OCCASIONAL /hpf (NONE SEEN); URINE CALCIUM OXALATE CRYSTAL PRESENT (NOT PRESENT); URINE RBC NONE SEEN /hpf (0-2)
[2023-12-05] MEDS ORDERED: NS 1,000 ML IV ONE ×2 (02:00→06:00)
[2023-12-05] MEDS ORDERED: fentaNYL 50 MCG/ML 2 ML VIAL IV ONE (02:00)
[2023-12-05] MEDS ORDERED: Iohexol 300 - 100 ML VIAL IV ONE (02:14)
[2023-12-05] MEDS ORDERED: Midazolam 2 MG/2 ML VIAL IV ONE ×2 (02:15→03:00)
[2023-12-05] MEDS ORDERED: NS 50 ML IV SCH (02:15)
[2023-12-05 03:36] LABS: ARTERIAL BLD GAS TCO2 CT 27.3; ARTERIAL BLOOD GAS BASE EXCESS -0.9 (-2-2); ARTERIAL BLOOD GAS HCO3 25.7 meq/L (22-26); ARTERIAL BLOOD GAS PCO2 49.9 mmHg (35-45); ARTERIAL BLOOD GAS pH 7.33 (7.35-7.45)
[2023-12-05 03:37] LABS: ARTERIAL BLOOD GAS PO2 144.4 mmHg (80-100)
[2023-12-05] MEDS ORDERED: Albuterol/Ipratropium 3 MG-0.5 MG/3 ML Neb Soln IH PRN (04:00)
[2023-12-05] MEDS ORDERED: metroNIDAZOLE 100 ML IV ONE (04:00)
--- NOTE | 2023-12-05 04:33 | NUR ---
Received report from ED nurse, Radha.
[2023-12-05 04:44] VITALS: BP 89/53; PULSE 111; TEMP 99.7
--- NOTE | 2023-12-05 04:44 | NUR ---
Patient arrives to ICU room 1 via ED stretcher. Patient is alert but drowsy/lethargic and is unable to clearly communicate verbally. This is baseline for patient per his history. Patient's speech is mumbled and unintelligible. He follows verbal commands. Patient transferred to ICU bed via slide board. Initial BP of 89/53, axillary temp of 99.7 - all other vitals within normal limits. Patient quickly falls asleep once settled in bed. Patient arrives with condom catheter in place draining clear yellow urine. Drainage bag exchanged by this RN. During assessment, this RN removed a dressing from patient's sacral area. Patient noted to have stage II wound to coccyx that extends to the bilateral buttocks. Wound was thoroughly cleansed and a new mepilex was applied.
--- NOTE | 2023-12-05 05:46 | NUR ---
Patient's belongings include street clothes. Patient unable to verbalize if he has dentures, glasses, or hearing aids. He is unable to answer suicide risk assessment questions. No family present at bedside at this time.
[2023-12-05] MEDS ORDERED: NS 1,000 ML IV SCH (06:00)
[2023-12-05] MEDS ORDERED: Potassium Chloride 100 ML IV SCH (06:15)
[2023-12-05] MEDS ORDERED: Baclofen 10 MG TAB PO PRN (06:15)
[2023-12-05] MEDS ORDERED: Acetaminophen 325 MG TAB PO PRN (06:15)
[2023-12-05] MEDS ORDERED: *Potassium Replacement Protocol MC SCH (06:15)
[2023-12-05] MEDS ORDERED: Magnes Hydrox (MOM) 80 MG/ML 30 ML CUP PO PRN (06:15)
[2023-12-05] MEDS ORDERED: KLONOPIN 1MG1 MG PO ×2 (06:18→06:20)
[2023-12-05] MEDS ORDERED: [UNRECOGNIZED DRUG - OTHER] PO (06:21)
[2023-12-05] MEDS ORDERED: MYLANTA MAXIMU355 M1 PO (06:23)
[2023-12-05] MEDS ORDERED: Nystatin Powder **** subs to Miconazole Powder TOP PRN (06:30)
[2023-12-05] MEDS ORDERED: Famotidine 20 MG TAB PO PRN (06:30)
[2023-12-05] MEDS ORDERED: Lactulose Oral Soln 10 GM/15 ML CUP PO PRN (06:30)
[2023-12-05] MEDS ORDERED: Carboxymethylcellulose PF Ophth 0.4 ML DROPPERETTE OP PRN (06:30)
[2023-12-05] MEDS ORDERED: Dextrose (Glucose) 15 GM (4 x 3.75 GM) Chewable TABLET PACK PO PRN (07:00)
[2023-12-05] MEDS ORDERED: Dextrose 50% Water 25 GM/50 ML SYRINGE IV PRN (07:00)
[2023-12-05] MEDS ORDERED: Glucagon 1 MG VIAL IM PRN (07:00)
--- NOTE | 2023-12-05 07:00 | NUR ---
REPORT RECEIVED FROM KO CASTILLO. PT RESTING IN BED, VSS. PT ON AIRVO AT 45L, 65%, TOLERATING WELL. PT IS DROWSY BUT WAKES EASILY TO VERBAL STIMULI, FOLLOWS COMMANDS, OUTREACH CONSULTANT STRONG AND EQUAL TO BOTH HANDS. FLUIDS AND POTASSIUM INFUSING TO PERIPHAL IV IN L AC. PT ON Q2HR TURN SCHEDULE D/T PRESSURE WOUNDS TO BUTTOCKS, MEPIPLEX DRESSING ALSO IN PLACE. CALL LIGHT IN REACH, BED ALARM ON FOR PT SAFETY.
[2023-12-05] MEDS ORDERED: Miconazole 2% Topical Powder BOTTLE TP PRN (07:15)
[2023-12-05 08:00] VITALS: BP 112/63; PULSE 86; TEMP 97.2
[2023-12-05] MEDS ORDERED: clonazePAM 1 MG TAB PO SCH ×2 (08:00→21:00)
[2023-12-05] MEDS ORDERED: Azithromycin 500 MG in NS 250 ML IV SCH (08:00)
[2023-12-05] MEDS ORDERED: Albuterol/Ipratropium 3 MG-0.5 MG/3 ML Neb Soln IH SCH (08:00)
[2023-12-05] MEDS ORDERED: Ziprasidone 20 MG CAP PO SCH (09:00)
[2023-12-05] MEDS ORDERED: Ascorbic Acid 500 MG TAB PO SCH (09:00)
[2023-12-05] MEDS ORDERED: Polyethylene Glycol 3350 17 GM PDS PO SCH (09:00)
[2023-12-05] MEDS ORDERED: Cholecalciferol (Vit D3) 5000 Units Capsule PO SCH (09:00)
[2023-12-05] MEDS ORDERED: Multivitamin TAB PO SCH (09:00)
[2023-12-05] MEDS ORDERED: Sennosides/Docusate 8.6-50 MG TAB PO SCH (09:00)
[2023-12-05] MEDS ORDERED: Apixaban 5 MG TABLET PO SCH (09:00)
--- NOTE | 2023-12-05 09:37 | NUR ---
Data: Spiritual Care visit attempted during Procurement Assistant rounds. Patient was sleeping. Patient is known to this Procurement Assistant. In previous hospital stays, Patient has wanted his Medical Receptionist Biller notified. Procurement Assistant discussed this with INSTRUCTOR FLYING. Assessment: None. Patient is sleeping. Plan of Care: Procurement Assistant notified Patient's Medical Receptionist Biller. Procurement Assistant recommended visiting tomorrow rather than today to allow the Patient time to wake from his medications. Medical Receptionist Biller indicated he will plan to visit sometime tomorrow (Thursday12/06/2023). Chaplains will remain available as needed/requested while Patient is admitted to this hospital.
[2023-12-05] MEDS ORDERED: Cefepime 1 G in Water For Injection,Sterile 10 ML IV SCH (10:00)
[2023-12-05 12:00] VITALS: BP 105/58; PULSE 70; TEMP 98
[2023-12-05] MEDS ORDERED: Insulin Lispro (HumaLOG) SQ SCH (12:00)
--- NOTE | 2023-12-05 12:16 | NUR ---
SEAMUS attempted to meet with patient to complete initial assessment for discharge planning. KO Villalba states that patient is very drowsy and difficult to wake up. He does respond to her commands but returns back to sleep quickly. SEAMUS reviewed chart. Patient is LTC at [facility], has DPOA assigned to his siblings and has a living will stating his wishes for medical care limitations. Attending put in palliative consult. SEAMUS spoke with Georgina at [facility] to inquire about code status. She states patient is a full code at facility and they have attempted palliative conversations with family with family choosing aggressive care. KO Villalba states she has spoken with two of patient's siblings today and they are all out of state. SEAMUS will attempt to meet with patient tomorrow to determine ability to participate in conversation and reach out to family to discuss discharge plan. Discharge plan: TBD
[2023-12-05 14:13] LABS: COLLECTION METHOD CLEAN CATCH
[2023-12-05 16:00] VITALS: BP 115/58; PULSE 64; TEMP 97.2
[2023-12-05] MEDS ORDERED: metroNIDAZOLE 100 ML IV SCH (16:00)
[2023-12-05 17:00] VITALS: BP_SYST 115
--- NOTE | 2023-12-05 17:15 | NUR ---
RECEIVED CALLS FROM ALL OF PT'S THREE SIBLINGS FOR UPDATES ON PT CONDITION. ALL 3 ARE LISTED DPOA. SISTER STATES PT IS ON PUREED DIET W/ HONEY THICKENED LIQUIDS, MEDS ARE CRUSHED AND GIVEN W/ PUDDING OR APPLESAUCE. PT BECAME MORE ALERT THROUGHOUT AFTERNOON. HE IS ABLE TO FOLLOW COMMANDS, SPEECH IS VERY SLURRED AND DIFFICULT TO UNDERSTAND BUT PT IS ABLE TO COMMUNICATE W/ STAFF AND USES CALL LIGHT FOR NEEDS. PO MEDS HELD AND NPO STATUS MAINTAINED DURING THIS SHIFT PT IS STILL DROWSY AT TIMES AND REPORTS FEELING WEAK. CONTACTED SISTER RAH VIA PHONE W/ UPDATE ON PT CONDITION AT 1700.
[2023-12-05 20:00] VITALS: BP 123/61; PULSE 67; TEMP 97.7
--- NOTE | 2023-12-05 20:17 | NUR ---
Patient resting quietly in bed watching TV. Vitals within normal limits. He is alert and partially oriented. Speech continues to be somewhat garbled and is difficult to understand. He continues to receive 3L oxygen via high flow nasal cannula, tolerating well. Denies pain or discomfort. Evening medications administered crushed in pudding without any difficulty. Patient exhibits a productive cough and is able to clear his secretions on his own.
[2023-12-05] MEDS ORDERED: Atorvastatin 10 MG TAB PO SCH (21:00)
[2023-12-05] MEDS ORDERED: TRAZODONE PO SCH (21:00)
[2023-12-05] MEDS ORDERED: Simvastatin 20 MG **** subs to Atorvastatin 10 MG PO SCH (21:00)
[2023-12-06] VITALS: BP 108/60; PULSE 66; TEMP 97.7
[2023-12-06 04:00] VITALS: BP 128/61; PULSE 63; TEMP 97.8
[2023-12-06 06:03] LABS: BASO % 0.3 % (0.0-2.0); EOS # 0.2 K/mm3 (0.0-0.7); EOS % 2.8 % (0.0-4.0); GRAN # 5.1 K/mm3 (1.4-6.5); GRAN % 74.9 % (42.2-75.2); LYMPH # 1.1 K/mm3 (1.2-3.4); MEAN CELL VOLUME 90 fl (80.0-100.0); MEAN CORPUSCULAR HEMOGLOBIN 28 pg (27-31); MEAN CORPUSCULAR HGB CONC 31 g/dl (33.0-37.0); MEAN PLATELET VOLUME 10.8 fl (7.4-10.4); MONO # 0.4 K/mm3 (0.1-0.6); MONO % 5.7 % (1.7-9.3); PLATELET COUNT 123 K/mm3 (130-400); RED BLOOD COUNT 4.34 M/mm3 (4.20-5.60)
[2023-12-06 06:15] LABS: CALCIUM 7.6 mg/dL (8.4-10.2); CREATININE, serum 0.63 mg/dL (0.72-1.25); MAGNESIUM 1.5 mg/dL (1.6-2.6); POTASSIUM 3.9 mEq/L (3.5-4.5)
--- NOTE | 2023-12-06 07:00 | NUR ---
Report recieved from KO May. Reviewed overnight events and labs. Pt resting in bed on 1L NC. Condom cath in place. IVF infusing per orders. Call light within reach. Will continue with POC.
[2023-12-06 08:00] VITALS: BP 133/77; PULSE 81; TEMP 97.8
[2023-12-06] MEDS ORDERED: Magnesium Sulfate 4% 50 ML IV SCH (09:30)
--- NOTE | 2023-12-06 10:28 | NUR ---
SW met with patient to complete intake. SW familiar with patient and able to understand and articulate communication to complete intake. Patient resides at [facility] in [facility]. DPOA/HC is sister Rebecca Chambers [phone] who SW spoke with as well and confirmed that she was out of town. PCP is Dr. Dolan. patient obtains total care from staff at [facility] staff. Patient will be returning to [facility] upon discharge. SW was informed that patient could go home today per physician. All current documentation faxed to [facility] staff and called to inform of potential discharge on this day. [facility] staff provided they will review information and give SW a call back. SW will continue to follow. Discharge plan: return to [facility]
--- NOTE | 2023-12-06 10:54 | NUR ---
SW received call from Georgina at [facility] stating they are not prepared to accept patient back today. They are asking for the goals of care meeting to be held prior to patient returning to facility and asking for updated notes to support medical stability tomorrow. Dr. Garcia notified of their decision. Discharge plan: Return to [facility]
[2023-12-06 12:00] VITALS: BP 142/87; PULSE 67; TEMP 98.1
--- NOTE | 2023-12-06 12:42 | NUR ---
Pt's blood sugar was 67. Hypoglycemia protocol followed and 12.5g of dextrose given. Rechecked blood sugar and it was up to 113. Attempted meds crushed in pudding and pt tolerated well initally and then started coughing. Pt has stroung productive cough and is able to use suction as needed.
[2023-12-06 16:00] VITALS: BP 138/77; PULSE 64; TEMP 98.1
--- NOTE | 2023-12-06 17:35 | NUR ---
Pt blood sugar dropped to 66. Updated Dr. Garcia who stated the pt could go on a pureed, honey thick diet. Pt drank some OJ and will recheck blood sugar.
[2023-12-06 20:00] VITALS: BP 138/77; PULSE 67; TEMP 97.9
--- NOTE | 2023-12-06 20:59 | NUR ---
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
[2023-12-07] VITALS (8 sets, daily range): BP systolic 128–183; BP diastolic 70–88; PULSE 59–82; TEMP 94.5–197.7
[2023-12-07 04:57] LABS: BASO % 0.3 % (0.0-2.0); EOS # 0.2 K/mm3 (0.0-0.7); EOS % 2.4 % (0.0-4.0); GRAN # 5.3 K/mm3 (1.4-6.5); GRAN % 75.1 % (42.2-75.2); HEMATOCRIT 41.6 % (42.0-52.0); HEMOGLOBIN 13.3 g/dl (13.5-18.0); LYMPH # 1.1 K/mm3 (1.2-3.4); MEAN CELL VOLUME 87 fl (80.0-100.0); MEAN CORPUSCULAR HEMOGLOBIN 28 pg (27-31); MEAN CORPUSCULAR HGB CONC 32 g/dl (33.0-37.0); MEAN PLATELET VOLUME 10.9 fl (7.4-10.4); MONO # 0.4 K/mm3 (0.1-0.6); MONO % 6.1 % (1.7-9.3); PLATELET COUNT 141 K/mm3 (130-400); RED BLOOD COUNT 4.79 M/mm3 (4.20-5.60); REDCELL DISTRIBUTION WIDTH-CV 13.5 % (11.5-14.5)
[2023-12-07 05:12] LABS: CALCIUM 8.3 mg/dL (8.4-10.2); CREATININE, serum 0.69 mg/dL (0.72-1.25); MAGNESIUM 1.8 mg/dL (1.6-2.6); POTASSIUM 3.6 mEq/L (3.5-4.5)
[2023-12-07] MEDS ORDERED: *Potassium Replacement Protocol MC SCH (05:30)
[2023-12-07] MEDS ORDERED: Potassium Chloride 100 ML IV SCH (05:30)
[2023-12-07] MEDS ORDERED: NS 1,000 ML IV SCH (06:15)
--- NOTE | 2023-12-07 07:29 | NUR ---
Report received form KO Dubose. Pt had unevnetful night. Reviewed labs. Pt potassium is being replaced at this time. Pt resting with eyes closed. Call light within reach. Will continue with POC.
--- NOTE | 2023-12-07 13:45 | NUR ---
PATIENT TRANSFERRED TO MEDICAL UNIT AT THIS TIME. ORIENTED TO ROOM. SUCTION IN PLACE AT BEDSIDE. SHIFT ASSESSMENT COMPLETED BY OMAR ROBERSON ORIENTEE, THIS RN AGREES WITH ASSESSMENT. CALL LIGHT PLACED WITHIN REACH AND BED ALARM IN PLACE. WILL CONTINUE TO MONITOR.
--- NOTE | 2023-12-07 14:05 | NUR ---
I attended GOC/Palliative meeting with pt Heri, Dr. Garcia, [facility], and on phone pt's sister Mallika, brothers Conner and Ren. Dr. Garcia reviewed current status of the pt failing Swallow Study with recommendations of NPO. Pt is a current Full Code. Dx of [facility] with 5 admissions for this dx since 04/05/23 with two admissions in August. It was discussed that the pt is now at a crossroad of chosing aggressive care vs Hospice Care. Heri followed conversation and in his responses spoke very slowly word by word or by spelling individual words. Family encouraged pt to take his time with communication and made efforts to understand and help Heri get his thoughts across. Heri brought up tx at the [facility] in [place] but family reminded him that that option was not available like it had been in the past. Heri also spoke of Botox tx- again family reminded him that that had not worked well in the past and at one point had made his swallowing effort worse. When pt was asked about a Peg tube, DNR status, Hospice he commented "I don't know." He did state, "I don't want to ." Dr. Garcia reviewed options of Hospice vs aggressive care. It was decided that the siblings would talk together and then they would call Heri and speak with him. There were no decisions made today. The family stated "this was a lot for them to take in".
--- NOTE | 2023-12-07 14:23 | NUR ---
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 SEAMUS spoke with Dr. Garcia and care team who advise a goals of care could be done with the PCP office, but pt is awaiting a speech eval. SEAMUS spoke with Dilcia at [facility] who reports needing a goals of care discussion and a speech/dietary eval done for pt. She questioned discharge from the ICU; SW advised that pt is med floor status and did not need to be transtioned from the ICU to the floor if he could discharge today. She reports being agreeable to this. SEAMUS faxed clinical updates in the meantime. SEAMUS spoke with Dr. Garcia and BELLO Cai who were agreeable of a 1-2pm goals of care meeting with pt's three siblings. SEAMUS called sister, Mallika and two brother's Ren and Conner [phone] to discuss. They were agreeable to 1pm meeting via phone. This meeting occurred and the family reports this as a lot of information to think about and take in. Pt attempted to articulate words by spelling and speaking slowly. Ultimately, options of agressive care with PEG tube vs hospice were discussed as pt did not pass his speech eval and is at risk for asipration. There were no decisions made and the family would like to discuss in private together and with pt to see how to proceed. Mallika reports she wants to "keep treating the pneumonia until it takes over" as a solution. All options were discussed and validated. SEAMUS informed Dilcia at [facility] that pt will stay another night and move to the medical floor while the family decides how to proceed. Discharge Plan: return to [facility]
--- NOTE | 2023-12-07 15:31 | NUR ---
Report called to KO Scott. Reviewed pt events and POC. Updated about goals of care meeting, family is still discussing options. Condom cath changed. Pt transported up to 354 via bed.
--- NOTE | 2023-12-07 15:45 | NUR ---
Pt. admitted from ICU. Pt. on room air w/ suction at bedside. Administered scheduled meds per JUL. Pt. unable to answer assessment questions. However, physical assessment was performed. Noted coarse crackles in all lung quadrants upon auscultation. Pt. c/o constipation, but colostomy does contain output. Bowel sounds hypoactive in all quadrants. Multiple stage 2 pressure ulcers noted to bilateral buttocks. Mepilex dressing exchanged at this time. Pt. is wearing bilateral heel booties. Blanchable redness noted to bilateral heels. Call light in reach.
[2023-12-07] MEDS ORDERED: LINZESS72 MCG PO (15:51)
[2023-12-07] MEDS ORDERED: D5W 1,000 ML IV SCH (17:30)
--- NOTE | 2023-12-08 02:24 | NUR ---
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 PT DISPLAYED NO SIGNS OF DISCOMFORT OR DISTRESS. PT NPO PER SPEECH. MEDS HELD UNTIL HOSPITALIST APPROVED THEM TO BE GIVEN (AT 0220HRS). WILL CONTINUE TO MONITOR PT TO ENSURE HIS NEEDS ARE MET. FALL PRECAUTIONS IN PLACE. BED ALARM ON. CALL LIGHT WITHIN REACH.
[2023-12-08] MEDS ORDERED: hydrALAZINE 20 MG/ML 1 ML VIAL IV PRN (02:30)
[2023-12-08 03:52] VITALS: BP 134/78; PULSE 83; TEMP 97.6
[2023-12-08 07:48] VITALS: BP 156/75; PULSE 80; TEMP 98
--- NOTE | 2023-12-08 08:50 | NUR ---
patient A&0 x4. reports tenderness to both legs, patient currently npo status. patient drowsy this morning sitting in bed. fluids running per doctors order. patient call light within reach. bed at lowest position. bed alarm on.
--- NOTE | 2023-12-08 10:02 | NUR ---
SW attended clinical rounds. Patient alert and talking to physician. Difficult to understand. Attending informed patient that he is stable to discharge to [facility] today due to ST stating that patient has improved today with oral feeds. Attending called patients brothkaren Mcclure after meeting with patient to update on status. Per Ren, family has decided to make patient DNR/DNI and return to [facility]. They are choosing to proceed [facility] and make patient Do Not Return to Hospital status. Brother verbally consented to this SW signing on his behalf the Medicare IM form. Original on chart copy placed in patient's room. Clinical updates and discharge orders will be sent secure email once completed. Discharge plan: Return to [facility]
[2023-12-08] MEDS ORDERED: FLAGYL500 MG PO (10:26)
[2023-12-08] MEDS ORDERED: CEFDINIR250 MG/5 M PO (10:27)
[2023-12-08 11:28] VITALS: BP 127/77; PULSE 77; TEMP 98
--- NOTE | 2023-12-08 11:30 | NUR ---
SEAMUS sent clinical updates and discharge orders via secure email to [facility]. SEAMUS received call from Georgina stating that per Nursing Dr. Dolan states he does not want to accept patient back for placement until he talks with family himself to verify their plan to proceed with DNR/DNI and palliative care at facility. This is due to family's history of being hesitant to palliative care in the past. Per report Dr. Dolan will not be able to talk with family until . This SW spoke with Director Dionna Palmer. Dr. Peguero was called to notify of situation. Dr. Peguero willing to do doc-2-doc to discuss conversation with family. SEAMUS called Dr Dolan's office to request contact for Dr. Dolan to provide to Dr. Peguero. Dr. Dolan available at this time and requested contact for Dr. Peguero to talk now. SEAMUS notified by Director Dionna Palmer that doctors have spoken and patient is cleared for transfer to [facility] today. Discharge summary and documentation of conversation with family will be sent when completed by Dr. Peguero. SEAMUS awaiting confirmation of transport time.
--- NOTE | 2023-12-08 14:07 | NUR ---
patient was picked up to be transported to skilled facility by facility staff. accompanied by via long bassem.
--- NOTE | 2023-12-08 14:34 | NUR ---
patient report was called to nurse receiving patient at [facility].
--- NOTE | 2023-12-09 13:12 | NUR ---
machine farmworker received a call from Carmencita Omer requesting further information on goals of care discussion that was had due to the family feeling as pt is on palliative. SAEMUS advised her and BELLO Cai initially had this conversation of agressive vs hospice, and there is no available palliative option. SEAMUS Omer agreed there is not local palliative option. SEAMUS advised she can discuss with BELLO Cai regarding pt's family's wishes and what all they wanted done, re: treating pneumonia, but no intubation etc. Phone was passed to BELLO Cai and they discussed details in length of goals of care discussion that was had in ICU.
== END 2023-12-08 14:07 | DRG 871 ==
LOC: COL.ER 23:56 → ICU 12-05 03:43 → MEDICAL 12-07 15:21
PROVIDERS: Emergency Medicine; Nurse Practitioner Family; ADMIT Internal Medicine
DX: A41.9 Sepsis, unspecified organism (principal); J69.0 Pneumonitis due to inhalation of food and vomit; J96.01 Acute respiratory failure with hypoxia; Z86.711 Personal history of pulmonary embolism; Z79.01 Long term (current) use of anticoagulants; E87.6 Hypokalemia; E83.42 Hypomagnesemia; I10 Essential (primary) hypertension; E78.5 Hyperlipidemia, unspecified; E11.9 Type 2 diabetes mellitus without complications; Z79.4 Long term (current) use of insulin; L89.152 Pressure ulcer of sacral region, stage 2; F22 Delusional disorders; F41.9 Anxiety disorder, unspecified; F32.A Depression, unspecified; G47.00 Insomnia, unspecified; Z66 Do not resuscitate
CPT/HCPCS: J0360; J0456; J0692; J1836; J2250; J3010; J3475; J3480; J7030; J7050; J7070; Q9967